=== PATIENT | female | born 1955 | race Caucasian/White ===

== ENCOUNTER → 2016-05-10 | Outpatient (CLI) | payer OTHER ==
--- NOTE | 2016-05-10 09:51 | DIAGNOSTIC IMAGING REPORT ---
(BARIUM SWALLOW) ESOPHAGUS CLINICAL HISTORY: REFLUXdysphagia COMPARISON STUDY: None FLUOROSCOPY TIME: 0.7 minutes. FINDINGS: Patient initiated swallowing function well. There is moderate esophageal spasm and dysmotility. There is a small hiatal hernia. Mild gastroesophageal reflux changes IMPRESSION: Small hiatal hernia. Moderate reflux. Generalized esophageal irritability and/or spasm Electronically signed by: Donovan Mo M.D. 05/10/2016 9:49 AM Dictated Date/Time: 05/10/2016 9:48 AM
== END | disposition home or self-care (01) ==
LOC: C.RAD 09:21
PROVIDERS: ATTEND Internal Medicine
DX: K21.9 Gastro-esophageal reflux disease without esophagitis (principal)

== ENCOUNTER → 2017-02-28 | Outpatient (CLI) | payer OTHER ==
--- NOTE | 2017-02-28 12:56 | MAMMOGRAPHY REPORT ---
BILATERAL DIGITAL SCREENING MAMMOGRAM WITH CAD: 02/28/2017 CLINICAL HISTORY: Routine screening. Patient has no complaints. TECHNIQUE: Current study was also evaluated with a Computer Aided Detection (CAD) system. Bilateral CC and MLO views were obtained. COMPARISON: Comparison is made to exams dated: 02/23/2016 mammogram, 02/17/2015 mammogram, 02/04/2014 mammogram, 01/29/2013 mammogram, and 02/01/2011 mammogram - [facility]. BREAST COMPOSITION: There are scattered areas of fibroglandular density in both breasts. FINDINGS: No suspicious masses, calcifications, or areas of architectural distortion are noted in ei ther breast. There has been no significant interval change compared to prior exams. Scattered bilater al benign-appearing calcifications are not significantly changed. IMPRESSION: ACR BI-RADS CATEGORY 2: BENIGN There is no mammographic evidence of malignancy. A 1 year screening mammogram is recommended. The pa tient will receive written notification of the results. Approximately 10% of breast cancers are not detected with mammography. A negative mammographic report should not delay biopsy if a clinically suggestive mass is present. Joanie Montano M.D. /:02/28/2017 07:40:29 Manager Qa: Gisell RYAN)([place]), [facility] letter sent: Normal 1/2 BI-RADS Code: ACR BI-RADS Category 2: Benign
== END | disposition home or self-care (01) ==
LOC: C.MAMM 07:14
PROVIDERS: ATTEND Internal Medicine
DX: Z12.31 Encounter for screening mammogram for malignant neoplasm of breast (principal)

== ENCOUNTER 2023-07-23 10:24 | Inpatient (IN) ==
--- NOTE | 2023-07-23 10:56 | Emergency Department Note ---
Impression & Plan Fracture of ankle, trimalleolar, right, open ADMIT ED Provider Note HPI: History obtained from patient. The patient is a 67-year-old female who presents the emergency department with a right ankle deformity. Patient states that she had a fall down several stairs outside her house when she slipped on one of her shoes. On arrival here to the ED the patient has some swelling of the right ankle, motor and sensory function is intact distally in the digits of the right foot. There are several small puncture wounds with minimal active bleeding to the medial aspect of the right ankle without any obvious exposed bone. Patient denies any other focal complaint of pain, patient is otherwise hemodynamically stable on arrival. ROS: - Per HPI Differential Diagnosis: Ankle fracture, ankle dislocation, open fracture, amongst other potential pathologies. *Outpatient medications and allergy history reviewed. PE: General: Alert HEENT: Normocephalic, trachea midline Eyes: Extraocular eye movement is intact, no scleral erythema Pulmonary: Clear to auscultation bilaterally, no wheezing Cardio: Regular rate and rhythm GI: Abdomen is soft to palpation : No suprapubic tenderness MSK: Malformation noted in the area of the right ankle with puncture wounds noted medially with minimal active bleeding, no evidence of exposed bone, there is a palpable dorsalis pedis pulse in the right lower extremity, motor and sensory function is otherwise intact distally in the right foot, there is no cyanosis Skin: No evidence of rash Neuro: Alert, no focal deficits Psychiatric: Cooperative INDEPENDENT INTERPRETATIONS: monitor technician: (As interpreted by myself): - An order was placed for continuous cardiac monitoring - Patient was noted to be in sinus rhythm with a rate of 65 EKG: (As interpreted by myself): Rate: 71 Rhythm: Normal sinus rhythm Intervals: Within normal limits ST changes: No ST elevation Time: 1114 Interventions provided in ED: -IV morphine, IV Zofran, IV Ancef, Tdap Medical Decision Making: IV was established and lab work obtained, patient was placed on clinical research monitor. Lab work shows no leukocytosis, hemoglobin is normal, platelet count is normal, CMP does not show any critical findings. X-ray imaging of the right ankle shows evidence of a trimalleolar fracture with some subcutaneous air consistent with open fracture. Patient does have an abrasion and puncture wound to the medial aspect of the right ankle. There is minimal active bleeding from this area. Patient was given IV Ancef as well as Tdap. I discussed the patient's presentation with on-call orthopedics, Dr. Waldrop, who did review x-ray imaging. Patient was evaluated at the bedside by the midlevel provider for the orthopedic service, Hans Longoria PA-C, patient was placed in a splint by the orthopedic service and transferred to the operating room for further management by the orthopedic service. Patient was in agreement to this plan and she was transferred in stable condition for further management. Consultants/Discussions held with other healthcare providers: -Orthopedic Surgery, Dr. Waldrop Disposition discussion held by myself with: -Patient Diagnosis: 1. Trimalleolar fracture, acute, right lower extremity, open fracture Disposition: Admission to orthopedics Donovan Palacios DO Emergency Medicine Past Med/Surg History Medical History (Updated 07/23/23 @ 15:33 by Donovan Palacios DO) Ankle fracture, left Type 2 diabetes mellitus Elevated cholesterol Hypertension Surgical History (Updated 07/23/23 @ 13:00 by Hans Longoria PA-C) Status post ORIF of fracture of ankle Family History (Updated 07/23/23 @ 13:00 by Hans Longoria PA-C) Other Stroke Social History (Updated 07/23/23 @ 13:01 by Hans Longoria PA-C) Smoking Status: Never smoker Hx Substance Use: No Preferred Language: Divehi Hearing Ability: Normal current occupational status: retired Feels Safe at Home: Yes Allergies Allergies Allergy/AdvReac Type Severity Reaction Status Date / Time house dust mite Allergy Sneezing Verified 07/23/23 14:11 pollen extracts Allergy Sneezing Verified 07/23/23 14:11 Home Meds Home Medications Medication Instructions Recorded Confirmed dulaglutide 0.75 mg/0.5 mL 0 mg subcut UD 07/23/23 07/23/23 [facility] Results & Data (ED) Vital Signs Vital Signs - 24 hr 07/23/23 10:18 07/23/23 10:33 07/23/23 10:39 Temperature 36.5 C Temperature Source Oral Pulse Rate 71 68 Pulse Rate [Apical] Pulse Rhythm [Apical] Pulse Strength [Apical] Respiratory Rate 18 18 Respiratory Effort / Characteristics Respiratory Depth Respiratory Pattern Blood Pressure 170/108 H Blood Pressure [Left Arm] Blood Pressure Mean 128 Blood Pressure Mean [Left Arm] Blood Pressure Position [Left Arm] Pulse Oximetry 95 Oxygen Delivery Method Room Air Sepsis Recent Fever Within 48 Hours No Sepsis New/Unexplained Change in Mental Status N/A Sepsis Action Taken by Nursing No Action Required 07/23/23 13:39 07/23/23 14:06 Temperature 36.6 C Temperature Source Oral Pulse Rate Pulse Rate [Apical] 67 63 Pulse Rhythm [Apical] Regular Pulse Strength [Apical] Normal Respiratory Rate 18 18 Respiratory Effort / Characteristics Non-Labored Spontaneous Respiratory Depth Normal Respiratory Pattern Regular Blood Pressure Blood Pressure [Left Arm] 144/86 H 156/107 H Blood Pressure Mean Blood Pressure Mean [Left Arm] 105 123 Blood Pressure Position [Left Arm] Semi-fowlers Pulse Oximetry 96 94 Oxygen Delivery Method Room Air Sepsis Recent Fever Within 48 Hours Sepsis New/Unexplained Change in Mental Status Sepsis Action Taken by Nursing Laboratory Data 07/23/23 11:28 07/23/23 11:28 Lab Results 07/23/23 07/23/23 Range/Units 11:28 14:08 WBC 8.51 (4.8-10.8) K/ul RBC 4.37 (4.20-5.40) M/uL Hgb 13.5 (12.0-16.0) g/dl Hct 40.9 (37.0-47.0) % MCV 93.6 (80.0-100.0) fL MCH 30.9 (25.0-34.0) pg MCHC 33.0 (32.0-36.0) g/dL RDW Std Deviation 47.2 H (36.4-46.3) fL RDW Coeff of Nelly 13.8 (11.5-14.5) % Plt Count 223 (130-400) K/uL MPV 10.9 (9.4-12.4) fL Immature Gran % (Auto) 0.2 % Neut % (Auto) 74.3 % Lymph % (Auto) 18.8 % [place] % (Auto) 5.3 % Eos % (Auto) 0.8 % Baso % (Auto) 0.6 % Neut # (Auto) 6.32 (1.40-6.50) K/uL Lymph # (Auto) 1.60 (1.20-3.40) K/uL [place] # (Auto) 0.45 (0.11-0.59) K/uL Eos # (Auto) 0.07 (0.00-0.50) K/uL Baso # (Auto) 0.05 (0.00-0.20) K/uL Immature Gran # (Auto) 0.02 (0.01-0.20) K/uL PT 10.5 (9.0-12.0) Seconds INR 1.0 (0.9-1.1) Sodium 140 (136-145) mmol/L Potassium 4.2 (3.5-5.1) mmol/L Chloride 106 (98-107) mmol/L Carbon Dioxide 25 (21-32) mmol/L Anion Gap 9 (3-11) BUN 18 (6-23) mg/dl Creatinine 0.78 (0.6-1.2) mg/dl Est Cr Clr Drug Dosing 84.7 ml/min Est GFR ( Amer) 90.5 ml/min Est GFR (Non-Af Amer) 78.1 ml/min BUN/Creatinine Ratio 23.1 H (10-20) Glucose 118 H (70-99(Fasting)) mg/dl POC Glucose 87 (70-99) mg/dl Calcium 9.1 (8.6-10.3) mg/dl Total Bilirubin 0.3 (0.2-1.0) mg/dl AST 16 (13-39) U/L ALT 17 (7-52) U/L Alkaline Phosphatase 63 (34-104) U/L Total Protein 6.6 (6.0-8.3) gm/dl Albumin 4.1 (3.4-5.0) gm/dl Globulin 2.5 (2.5-4.0) gm/dl Albumin/Globulin Ratio 1.6 (0.9-2) Blood Type O Positive Antibody Screen NEGATIVE Administered Medications Discontinued Medications Diphtheria/Pertussis/Tetanus Vacc (Diphther/Tetan/Pertus Vaccine (Tdap, Adol/Adult) 0.5ml) 0.5 ml IM .ONCE ONE Stop: 07/23/23 10:51 Last Admin: 07/23/23 12:02 Dose: 0.5 ml Documented By: ISHMAEL Sodium Chloride (Nss) 500 mls @ 999 mls/hr IV .Q31M STA Stop: 07/23/23 11:19 Last Infusion: 07/23/23 12:26 Dose: Infused Documented By: Admin: 07/23/23 11:00 Dose: 999 mls/hr Documented By: ISHMAEL Cefazolin Sodium (Ancef 2000mg) 2,000 mg in 15 mls @ 3.75 mls/min IV PREOP ONE; Protocol Stop: 07/23/23 10:52 Last Admin: 07/23/23 11:01 Dose: 3.75 mls/min Documented By: ISHMAEL Metoprolol Tartrate (Metoprolol Tartrate 1 Mg/Ml Vial) Confirm Administered Dose 5 mg IV .STK-MED ONE Stop: 07/23/23 13:30 Last Admin: 07/23/23 13:35 Dose: Not Given Documented By: ISHMAEL Morphine Sulfate (Morphine Sulfate 4 Mg/Ml 1 Ml Carp\Vial) 4 mg IV NOW STA Stop: 07/23/23 10:52 Last Admin: 07/23/23 11:00 Dose: 4 mg Documented By: ISHMAEL Ondansetron HCl (Ondansetron Inj 2 Mg/Ml 2 Ml Vial) 4 mg IV NOW STA Stop: 07/23/23 10:52 Last Admin: 07/23/23 11:00 Dose: 4 mg Documented By: ISHMAEL Imaging Data Radiologist's Impression: Ankle X-Ray 07/23/23 10:51 XR ankle RT min 3V routine CLINICAL HISTORY: fall, R ankle deformity COMPARISON STUDY: None. FINDINGS: Soft tissue swelling within the right ankle. There is a displaced fractures involving the medial and lateral malleoli. Possible displaced fracture the posterior malleolus. There is associated 12 mm of lateral dislocation of the talus in relation to the distal tibia. There is soft tissue gas within and surrounding the ankle joint. This suggests the possibility of an open fracture. IMPRESSION: 1. Right ankle trimalleolar fracture/dislocation as described above. 2. Soft tissue gas both within and surrounding the right ankle joint raising the possibility of an open fracture. ACT 112: Negative or not required by law. Electronically signed by: Forest Cook M.D. 07/23/2023 11:13 AM Discharge Plan Visit Data Chief Complaint: Ankle Pain Stated Complaint: FALL, R ANKLE PAIN ED Provider: Donovan Palacios Discharge Problem: Fracture of ankle, trimalleolar, right, open Patient Disposition: Admitted As Inpatient Discharge Instructions Interventions: ED Discharge Assessment Last Done: 07/23/23 13:49
[2023-07-23] MEDS: MoRPHine SULFATE 4 MG/ML 1 ML CARP\\VIAL IV STA (11:00)
[2023-07-23] MEDS: SODIUM CHLORIDE 0.9% 500 ML IV STA (11:00)
[2023-07-23] MEDS: ONDANSETRON INJ 2 MG/ML 2 ML VIAL IV STA (11:00)
[2023-07-23] MEDS: ceFAZolin 2000MG 2,000 MG/15 ML SYR IV ONE ×2 (11:01→15:15)
--- NOTE | 2023-07-23 11:15 | XRay Report ---
XR ankle RT min 3V routine CLINICAL HISTORY: fall, R ankle deformity COMPARISON STUDY: None. FINDINGS: Soft tissue swelling within the right ankle. There is a displaced fractures involving the m edial and lateral malleoli. Possible displaced fracture the posterior malleolus. There is associated 12 mm of lateral dislocation of the talus in relation to the distal tibia. There is soft tissue gas w ithin and surrounding the ankle joint. This suggests the possibility of an open fracture. IMPRESSION: 1. Right ankle trimalleolar fracture/dislocation as described above. 2. Soft tissue gas both within and surrounding the right ankle joint raising the possibility of an op en fracture. ACT 112: Negative or not required by law. Electronically signed by: Forest Cook M.D. 07/23/2023 11:13 AM
[2023-07-23 11:49] LABS: Basophils # (auto) 0.05 K/uL (0.00-0.20); Basophils % (auto) 0.6 %; Eosinophils # (auto) 0.07 K/uL (0.00-0.50); Eosinophils % (auto) 0.8 %; Hematocrit (blood only) 40.9 % (37.0-47.0); Hemoglobin 13.5 g/dl (12.0-16.0); Immature Granulocytes # (auto) 0.02 K/uL (0.01-0.20); Immature Granulocytes % (auto) 0.2 %; Lymphocytes % (auto) 18.8 %; Mean Corpuscular Hemoglobin 30.9 pg (25.0-34.0); Mean Corpuscular Volume 93.6 fL (80.0-100.0); Mean Platelet Volume 10.9 fL (9.4-12.4); Monocytes # (auto) 0.45 K/uL (0.11-0.59); Monocytes % (auto) 5.3 %; Neutrophils # (auto) 6.32 K/uL (1.40-6.50); Neutrophils % (auto) 74.3 %; Platelet Count 223 K/uL (130-400); RDW Coefficient of Variation 13.8 % (11.5-14.5); RDW Standard Deviation 47.2 fL (36.4-46.3); Red Blood Count 4.37 M/uL (4.20-5.40); White Blood Count 8.51 K/ul (4.8-10.8)
[2023-07-23 11:55] LABS: Prothrombin Time 10.5 Seconds (9.0-12.0)
[2023-07-23] MEDS: DIPHTHER/TETAN/PERTUS Vaccine (Tdap, Adol/Adult) 0.5mL IM ONE (12:02)
[2023-07-23 12:05] LABS: Albumin Globulin Ratio 1.6 (0.9-2); Albumin Level 4.1 gm/dl (3.4-5.0); BUN Creatinine Ratio 23.1 (10-20); Bilirubin,Total 0.3 mg/dl (0.2-1.0); Calcium 9.1 mg/dl (8.6-10.3); Creatinine Clr Calc Pharmacy 84.7 ml/min; Est GFR (African American) 90.5 ml/min; Est GFR (Non-African American) 78.1 ml/min; Globulin 2.5 gm/dl (2.5-4.0); Potassium 4.2 mmol/L (3.5-5.1); Total Protein 6.6 gm/dl (6.0-8.3)
[2023-07-23] MEDS ORDERED: ROCURONIUM BROMIDE 10 MG/ML 5 ML VIAL IV ONE (13:04)
[2023-07-23] MEDS ORDERED: DEXAMETHASONE SOD INJ 4 MG/ML VIAL ONE (13:04)
[2023-07-23] MEDS ORDERED: ONDANSETRON INJ 2 MG/ML 2 ML VIAL ONE (13:04)
[2023-07-23] MEDS ORDERED: MIDAZOLAM HCL 1 MG/ML 2ML VIAL ONE (13:04)
[2023-07-23] MEDS ORDERED: LIDOCAINE 2% 2 ML VIAL/AMP(20MG/ML) INFIL ONE ×2 (13:04→14:44)
[2023-07-23] MEDS ORDERED: fentaNYL citrate PF 100 MCG/2 ML VIAL ONE ×2 (13:04→16:28)
[2023-07-23] MEDS ORDERED: PROPOFOL IV EMULSION 10 MG/ML 20 ML VIAL IV ONE (13:04)
[2023-07-23] MEDS ORDERED: GLYCOPYRROLATE 0.2 MG/ML VIAL ONE (13:04)
[2023-07-23] MEDS ORDERED: SUGAMMADEX SODIUM 200 MG/2 ML VIAL IV ONE (13:05)
--- NOTE | 2023-07-23 13:12 | Orthopedic Consultation ---
Date of Consultation July 23, 2023 Assessment & Plan (1) Fracture of ankle, trimalleolar, right, open: The patient was evaluated today. IV has already been established. She has been updated on her tetanus and antibiotics have been given. She will be splinted and taken to the operating room for irrigation and debridement with open reduction and internal fixation of the ankle fracture. She is aware. The patient last ate at 7 AM. It has been 6 hours, but we will proceed with surgery given the emergent nature of her injury. Informed written consent has been obtained. She is aware of her postoperative recovery given her previous ORIF of the left ankle. PDMP was checked and there are no concerning findings. History of Present Illness Reason for Consultation: Right ankle open fracture Attending Physician: Palma History of Present Illness This 67-year-old female is seen today in room B2 in the ED, for evaluation of a right open ankle fracture. The patient states she was walking down her outdoor steps this morning and had heels on. She was going to line dancing. She caught her heel and fell, twisting her ankle. There was immediate onset of pain. She noted bleeding. She was brought to the ED and found to have an open ankle fracture. She denies any other areas of discomfort other than her right diaz. She states there is an abrasion present. She has a history of previous left ankle fracture with ORIF in 2018 performed by [facility] orthopedics. She denies any numbness or tingling. There was no loss of conscious. She denies any headache or neck pain. Last food intake was around 7 AM. No other complaints. Patient History Medical History (Updated 07/23/23 @ 13:08 by Hans Longoria PA-C) Ankle fracture, left Type 2 diabetes mellitus Elevated cholesterol Hypertension Surgical History (Updated 07/23/23 @ 13:00 by Hans Longoria PA-C) Status post ORIF of fracture of ankle Family History (Updated 07/23/23 @ 13:00 by Hans Longoria PA-C) Other Stroke Social History (Updated 07/23/23 @ 13:01 by Hans Longoria PA-C) Smoking Status: Never smoker Hx Substance Use: No Preferred Language: Lao Hearing Ability: Normal current occupational status: retired Feels Safe at Home: Yes Review of Systems Review of Systems: All systems reviewed & are unremarkable except as noted in HPI & below A total of 10 systems were reviewed. Physical Exam Physical Exam: General: Well-developed, well-nourished, middle-aged female, in no acute distress. Obvious discomfort. Laying in bed. Alert and oriented. Skin: Warm and dry with good turgor. No rashes. She has an abrasion present over the right diaz with mild ecchymosis and edema developing. She has open puncture wounds present on the medial aspect of her right ankle. There is active bleeding. No foreign material is noted. HEENT: Normocephalic atraumatic. Eyes PERRLA, EOMI. No conjunctiva or scleral injection. Nares patent bilaterally without turbinate enlargement. No significant drainage. No epistaxis. Oropharynx without erythema or exudate. Uvula midline, oral mucosa moist. No lesions present. Dental caps and implants are present. Heart: Heart RRR. No MGR. Peripheral pulses are 2+. Lungs: Lungs are clear to auscultation. No crackles rhonchi or wheezing. Good air movement. The patient is able to take a deep breath. Abdomen: Abdomen was inspected, auscultated, and palpated. Obese. Bowel sounds present x 4. Soft, nontender to palpation. No hepato-splenomegaly. No masses noted. No rebound. Musculoskeletal: The patient has no discomfort with palpation of her left leg. There is supple motion of the left hip, knee, and ankle. Motion of the right leg causes pain at her right ankle. She has no pain with palpation over her right hip, thigh, knee, or proximal diaz. Motor function of the toes is intact and unremarkable. Motor function of the ankle was not assessed. Neurologic: Gross sensation is intact across both lower extremities by soft touch. Peripheral pulses are 2+. Results & Data Vital Signs (Past 12 Hours) Vital Signs Temp Pulse Resp BP Pulse Ox O2 Del Method 07/23/23 10:39 68 07/23/23 10:33 18 07/23/23 10:18 36.5 C 71 18 170/108 H 95 Room Air Laboratory Results CBC obtained today shows a white count of 8.51. H&H of 13.5 and 40.9. Platelets 223,000. Sodium 140, potassium 4.2, chloride 106, anion gap of 9. BUN of 18 with creatinine 0.78. Glucose today is 118. LFTs are unremarkable. Diagnostic Findings Radiographic imaging obtained today of the right ankle has been read by radiology. She has a possible trimalleolar fracture with definitive fractures of the medial and lateral malleoli as well as lateral displacement. Questionable injury to the posterior tibia. Gas is noted consistent with an open fracture.
--- NOTE | 2023-07-23 13:21 | Anesthesiology Consultation ---
Date of Service July 23, 2023 History Surgery Operation Date: 07/23/23 13:10 Proposed Procedures p Right Incision and Drainage - Maxi Waldrop MD s Open Reduction Internal Fixation Ankle - Maxi Waldrop MD Height/Weight Height: 5 ft 6 in Weight: 105.3 kg Past Medical History Medical History (Updated 07/23/23 @ 13:08 by Hans Longoria PA-C) Ankle fracture, left Type 2 diabetes mellitus Elevated cholesterol Hypertension Past Family History Family History (Updated 07/23/23 @ 13:00 by Hans Longoria PA-C) Other Stroke Past Surgical History Surgical History (Updated 07/23/23 @ 13:00 by Hans Longoria PA-C) Status post ORIF of fracture of ankle Social History Smoking Status: Never smoker Hx Substance Use: No Physical Exam Vital Signs Last Vital Signs Temp 36.5 C 07/23/23 10:18 Pulse 68 07/23/23 10:39 Resp 18 07/23/23 10:33 BP 170/108 H 07/23/23 10:18 Pulse Ox 95 07/23/23 10:18 O2 Del Method Room Air 07/23/23 10:18 Testing Laboratory Results 07/23/23 11:28 07/23/23 11:28 PT 10.5 Seconds (9.0-12.0) 07/23/23 11:28 INR 1.0 (0.9-1.1) 07/23/23 11:28 Blood Type O Positive 07/23/23 11:28 Antibody Screen NEGATIVE 07/23/23 11:28
[2023-07-23] MEDS: METOPROLOL TARTRATE 1 MG/ML VIAL IV ONE (13:35)
[2023-07-23] MEDS ORDERED: ROPIVACAINE 0.5% 5 MG/ML 30 ML VIAL ONE (13:46)
[2023-07-23] MEDS ORDERED: ceFAZolin 330 MG/ML 1 GM VIAL ONE (15:14)
[2023-07-23] MEDS: LIDOCAINE 1% LOCAL 20 ML VIAL ONE (15:44)
[2023-07-23] MEDS: BUPIVACAINE/EPINEPHRINE 0.5% MPF 1:200,000 30 ML VIAL ONE (15:44)
[2023-07-23] MEDS: BUPIVACAINE 0.5 % 5 MG/1 ML MPF 30ML VIAL ONE (15:44)
[2023-07-23] MEDS: LIDOCAINE 1%/EPINEPHRINE 1:100,000 20 ML VIAL ONE ×2 (15:44)
[2023-07-23] MEDS ORDERED: hydrALAZINE HCL 20 MG/ML VIAL ONE (16:53)
--- NOTE | 2023-07-23 17:43 | Fluoroscopy Report ---
FL ankle RT min 3V RTN CLINICAL HISTORY: RT ANKLE ORIF COMPARISON STUDY: None. FLUOROSCOPY TIME: 48 seconds FLUOROSCOPY IMAGES: 4 Ka,r: 0.6 mGy FINDINGS: Internal fixation of the right ankle trimalleolar fracture/dislocation. The hardware appear s intact. There is near-anatomic alignment. IMPRESSION: Fluoroscopic assistance as above. ACT 112: Negative or not required by law. Electronically signed by: Forest Cook M.D. 07/23/2023 5:42 PM
--- NOTE | 2023-07-23 18:05 | Operative Report ---
Post Operative Report Pre & Post Diagnosis Operation Date: 07/23/23 13:10 Pre-Op Diagnosis: Grade 1 open right ankle bimalleolar fracture Post-Op Diagnosis: Grade 1 open right ankle bimalleolar fracture with unstable syndesmosis. I identified the patient and participated in the time-out.: Yes Procedure Operation Date: 07/23/23 13:10 Actual Procedures Irrigation and debridement of the right ankle bimalleolar fracture. Open reduction internal fixation of the medial and lateral malleolus. Open reduction internal fixation of the syndesmosis. Surgeon Maxi Waldrop MD Bowling Ball Patcher Hans Longoria physicians assistant inventory manager no resident or fellow available Estimated Blood Loss 50 Findings Consistent with Post-Op Diagnosis Specimens None Anesthesia Type General Regional Complications none Disposition Accompanied Patient To Recovery: No Disposition: Recovery Room Indications Prisca is 67. She fell and sustained a open right ankle fracture. I recommended irrigation and debridement ORIF she agreed to proceed. Her tetanus is up-to-date in which she received IV antibiotics in the emergency room. Description of Procedure Informed consent obtained. Patient identified. She identified the operative site as the right ankle which I marked with my initials. A preoperative surgical timeout was performed. A preop dose of IV antibiotics was given. She was taken to the operating room positioned supine on the operating room table with a tourniquet on the right thigh and a bump under the right hip. The leg was scrubbed with Betadine and then prepped and draped in usual sterile fashion with Betadine. There is an abrasion over the tibial tubercle area. There was an abrasion medial ankle. There was an area anteriorly along the medial ankle which was almost open. It did not clearly bleed and did not directly penetrate into the deeper tissues when later probed. There was however a break in this skin that went through the epidermis and into the dermis. This was less than 5 mm in size. It was transversely oriented at the level of the fracture site. There is another area posterior to this which measured 5 mm in length anterior to posterior which was open and bleeding and communicated directly to the fracture site at that level. The limb was exsanguinated with the Esmarch tourniquet inflated 300 mmHg. The ankle was grossly unstable and care was taken to prevent ankle instability episode. Mechanical devices for intraoperative DVT prophylaxis. Postoperatively mobility mechanical devices and Eliquis starting the morning after surgery. I made a longitudinal incision about 6 to 8 cm in length medially along the shaft of the tibia over the medial malleolus and between the 2 after mentioned wounds. Upon incising the skin the fracture was readily identified as all of the subcutaneous tissues had been violated. The fracture was identified and cleaned of soft tissue. This was a small distal fragment without comminution. The posterior tib tendon was identified and was found to be intact. The ankle joint was easily opened by inserting a retractor through the anterior soft tissues there was a small scuff of the central talus which I debrided with a rongeur. A couple millimeters flake of cartilage. The remainder of the ankle joint itself was unremarkable. I applied 3+ liters of sterile saline for pulsatile lavage and bulb syringe irrigation to the bony surfaces and joint. The fracture was then anatomically reduced and confirmed visually and fluoroscopically and then 2 guidepins for the 4.0 cannulated screws were i nserted and adjusted x 2 to the appropriate position. I ensured that the posterior tib tendon was not near the screw. The pins were overreamed and screws of 50 mm in length with long threads., 4.0 cannulated screws were inserted with good purchase. Washers were applied. Dental Service Technician images were obtained demonstrating anatomic alignment of the fracture and good positioning of the hardware. I then went ahead and turned my attention laterally where I made a longitudinal incision of about 10 cm in length. The soft tissues were largely intact except for directly over the baudilio fracture site. I used blunt dissection down to subcutaneous tissues to the level of the periosteum which was then divided in line with the shaft of the fibula and subperiosteal exposure of the fracture site was performed. A small transversing nerve branch which may have been a branch of the superficial peroneal nerve was identified preserved and protected throughout the procedure. The fracture site was opened and cleaned of soft tissue and then irrigated with 3 L pulsatile lavage. I then applied a alligator clamp across the fracture site and fixated this with a bicortical 3.5 mm lag screw. I then applied a 7 hole one third tubular locking plate and aligned fluoroscopically. I inserted a 3.5 mm bicortical screw proximally followed by 2 additional screws distally and 2 locking screws proximally. The distal screws were unicortical. The proximal screws were bicortical. The syndesmosis was stressed and found to be grossly unstable medial to lateral as well as posteriorly. Anterior had a firm endpoint and that that is where it tended to be position. I put the ankle and maximum dorsiflexion and applied a large bone clamp across the syndesmosis. Then fluoroscopically with guidance I inserted a 4 cortical 3.5 mm positioning screw through the plate and into the tibia. This restored stability to the syndesmosis in the proper position. Dental Service Technician fluoroscopic images AP lateral and oblique were obtained demonstrating good positioning of the fracture and hardware. The tourniquet was let down and meticulous hemostasis was performed. Both sides were reirrigated with another liter of sterile saline. The puncture wounds medially were closed with simple 4-0 nylon interrupted stitches. Loosely approximated. There is no deeper soft tissue to reapproximate medially. The saphenous neurovascular bundle was identified in the anterior skin flap and protected. The skin was closed with 3-0 Vicryl followed by cherise. On the lateral side I was able to reapproximate the deeper soft tissues over the distal two thirds of the plate with 2-0 Vicryl. The skin was then closed with 3-0 Vicryl and cherise. Deeper proximally the perineal muscles covered over the plate. The leg was cleaned with wet and dry sponges Xeroform antibiotic ointment were applied gauze pads ABDs soft wrap and a posterior splint with the ankle in neutral. Patient awakened from anesthesia without difficulty and taken to recovery in stable condition. There were no specimens or complications counts were correct and blood loss is estimated to be 50 cc. At the conclusion the operation I left a message for her at the number provided. She will be admitted to the hospital for IV antibiotics for open fracture. 48 hours of IV antibiotics. She will be nonweightbearing on the involved limb. Eliquis for DVT prophylaxis starting in the morning. Synthes hardware was used utilized. 4.0 cannulated screws medially and a 3.5 mm locking plate laterally. I attest to the content of the Intraoperative Record and any orders documented therein. Any exceptions are noted below.
--- NOTE | 2023-07-23 18:31 | Operative Report ---
Post Operative Report Pre & Post Diagnosis Operation Date: 07/23/23 13:10 Pre-Op Diagnosis: Right ankle fracture Post-Op Diagnosis: Right ankle fracture I identified the patient and participated in the time-out.: Yes Procedure Operation Date: 07/23/23 13:10 Actual Procedures p Right Incision and Drainage(Right) - Maxi Waldrop MD s Open Reduction Internal Fixation Ankle(Right) - Maxi Waldrop MD Surgeon P Palma MENDOZA Harvesting Manager Hans Longoria physicians porcelain buildup assistant no resident or fellow available Estimated Blood Loss 50 Findings Consistent with Post-Op Diagnosis See operative report Specimens None Drains None Complications none Disposition Accompanied Patient To Recovery: Yes Indications This 67-year-old female presented through the ED with an open right ankle fracture. She elected to proceed with surgical intervention after being educated about potential risks and outcomes. Preoperative imaging was obtained. Description of Procedure The patient was administered a regional block and then taken to the operating room where she was given general anesthesia. She was prepped and draped in the usual sterile fashion. Please see Dr. Waldrop's operative report for specifics of the procedure. I was present for the entire case from initial patient positioning through final wound closure. Assistance was provided in ti ssue retraction, hemostasis, fracture reduction, hardware placement, final wound closure, and postsurgical splinting. The patient was taken to the recovery room in satisfactory condition. I attest to the content of the Intraoperative Record and any orders documented therein. Any exceptions are noted below.
[2023-07-23] MEDS ORDERED: ONDANSETRON INJ 2 MG/ML 2 ML VIAL IV PRN (18:32)
[2023-07-23] MEDS ORDERED: oxyCODONE HCL IR 5 MG TAB (IMMEDIATE RELEASE) PO PRN (18:32)
[2023-07-23] MEDS ORDERED: MAGNESIUM HYDROXIDE SUSP 30 ML UDC PO PRN (18:32)
[2023-07-23] MEDS ORDERED: METOCLOPRAMIDE HCL INJ 5 MG/ML 2 ML VIAL IV PRN (18:32)
[2023-07-23] MEDS ORDERED: bisacodyL 10 MG SUPP PR PRN (18:32)
[2023-07-23] MEDS ORDERED: PHARMACY GLYCEMIC MGMT CONSULT PRN (18:32)
[2023-07-23] MEDS ORDERED: ALUMINUM/MAGNESIUM SUSP 30 ML UDC PO PRN (18:32)
[2023-07-23] MEDS ORDERED: HYDROmorphone INJ 0.5 MG/0.5 ML SYR IV PRN (18:32)
[2023-07-23] MEDS ORDERED: NALOXONE HCL 0.4 MG/1 ML VIAL/CARP IV PRN (18:32)
--- NOTE | 2023-07-23 18:49 | Anesthesiology Progress Note ---
Date of Service July 23, 2023 Anesthesia Post Procedure Vital Signs Vital Signs: Temp Pulse Pulse Resp BP BP Pulse Ox 07/23/23 18:40 82 23 142/79 H 93 07/23/23 18:30 89 24 139/87 95 07/23/23 18:22 37.0 C 85 21 118/76 94 07/23/23 14:06 36.6 C 63 18 156/107 H 94 07/23/23 13:39 67 18 144/86 H 96 07/23/23 10:39 68 07/23/23 10:33 18 07/23/23 10:18 36.5 C 71 18 170/108 H 95 O2 Del Method O2 Flow Rate 07/23/23 18:40 Oxymask 4 07/23/23 18:30 Oxymask 8 07/23/23 18:22 Oxymask 8 07/23/23 14:06 Room Air 07/23/23 13:39 07/23/23 10:39 07/23/23 10:33 07/23/23 10:18 Room Air Pain Intensity Right Ankle: Pain Intensity: 3 Transfer of Care Handoff Completed per policy Notes Mental Status: alert / awake / arousable and participated in evaluation Patient Amnestic to Procedure: Yes Nausea / Vomiting: adequately controlled Pain: adequately controlled Airway Patency, RR, SpO2: stable & adequate BP & HR: stable & adequate Hydration State: stable & adequate Anesthetic Complications: no major complications apparent and Pt Satisfied with anesthetic care
[2023-07-23] MEDS: SODIUM CHLORIDE 0.9% 1,000 ML IV SCH ×2 (19:57→20:09)
[2023-07-23] MEDS ORDERED: LANTUS PER UNIT CHARGE SC ONE (20:00)
[2023-07-23] MEDS ORDERED: GLUCAGON FOR INJ 1 MG VIAL IM PRN (20:00)
[2023-07-23] MEDS ORDERED: DEXTROSE 50% 50 ML SYRINGE IV PRN (20:00)
[2023-07-23] MEDS ORDERED: GLUCOSE 40% GEL 15 GM TUBE PO PRN (20:00)
[2023-07-23] MEDS ORDERED: CARBOHYDRATES FOR HYPOGLYCEMIA PO PRN (20:00)
[2023-07-23] MEDS ORDERED: GLUCOSE 10 TAB/TUBE PO PRN (20:00)
--- OUTSIDE RECORDS SUMMARY | 2023-07-23 20:09 | External Medical Summary | Summary of Care ---
Author Name Unknown Organization [facility] Address [address] [place] [address] Phone [phone] Care Team Providers Care Stonemason Helper Name Role Phone Gisela Hedrick MD Primary Care Provider [phone] Reason for Visit * Reason Comments eRx-Medication Refill Encounter Details Date Type Department Care Team (Late st Contact Info) Description 06/30/2023 Refill General Internal Medicine [facility] [address] [place] [address] Gisela Hedrick MD [address] [place] [address] Type 2 diabetes mellitus with hemoglobin A1c goal of less than 7.0% ([facility]); Severe obesity (BMI 35.0-39.9) with comorbidity ([facility]) Allergies Active Allergy Reactions Criticality Noted Date Comments Pollen Low 06/21/2016 Rhinitis Mites 06/21/2016 documented as of this encounter (statuses as of 07/01/2023) Medications Medication Sig Dispensed Refills Start Date End Date Status MULTI-DAY VITAMINS PO TABS once a day 0 12/20/2005 Active aspirin enteric coated 81 MG TBECIndications:Type 2 diabetes mellitus with hemoglobin A1c goal of less than 7.0% (HCC) Take 1 Tab by mouth daily. 100 Tab 3 01/03/2016 Active Glucose Blood (WoogaTOUCH ULTRA BLUE) STRPIndications:Type 2 diabetes mellitus with hemoglobin A1c goal of less than 7.0% (HCC) Use up to 3 times a day as directed--E11.9 100 Strip 11 01/03/2016 Active Blood Glucose Monitoring Suppl (WoogaTOUCH ULTRA SYSTEM) W/DEVICE KITIndications:Type 2 diabetes mellitus with hemoglobin A1c goal of less than 7.0% (HCC) Use up to 3 times a day as directed--E11.9 1 Kit 0 01/03/2016 Active Netsonda ResearchUCH ULTRASOFT LANCETS MISCIndications:Type 2 diabetes mellitus with hemoglobin A1c goal of less than 7.0% (HCC) Use up to 3 times a day as directed--E11.9 1 Box Dosing Unit 11 01/03/2016 Active Saline Nasal [place] 0.65 % Nasal Solution Administer 1 [place] into nostril as needed for Congestion. 0 Active diphenhydrAMINE (BENADRYL) 25 MG Capsule Use 1 or 2 tabs as needed at bedtime for worsening nasal allergy symptoms 50 Cap 1 05/17/2016 Active MEDICAL INSTRUCTIONS Patient has sleep apnea and is on CPAP machine at night. 1 Each 1 10/04/2016 Active Magnesium Oxide 400 (241.3 Mg) MG Oral TabletIndications:Mi graine without aura and without status migrainosus, not intractable Take 400 mg by mouth every other day. -st 06/13/2020-feb 19 1 Tab 0 09/11/2020 Active Ibuprofen 600 MG Oral Tablet (Motrin)Indications: Chronic pain of right knee,Arthritis of right knee,Knee effusion, right,Patellar tracking disorder of right knee Take 1 Tablet by mouth every 8 hours as needed (Pain). with food for 1 week then as needed--use for pain and swelling knee 30 Tab 1 09/11/2020 Active CPAP every night at bedtime . 0 Active Ketotifen Fumarate 0.025 % Ophthalmic Solution (Zaditor)Indications :Chronic allergic conjunctivitis Instill 1 Drop into both eyes as needed (as needed for dry eyes). 5 mL 0 10/02/2021 Active Vitamin D3 50 MCG (1999 UT) Oral Capsule Take 1 Capsule by mouth in the morning. 0 Active Fluticasone Propionate 50 MCG/ACT Nasal Suspension (Flonase) Administer 1 [place] into each nostril in the morning and 1 [place] before bedtime. 48 mL 3 05/22/2022 Active Denosumab 60 MG/ML Subcutaneous Solution Prefilled Syringe (Prolia)Indications: Traumatic compression fracture of L4 lumbar vertebra with routine healing, subsequent encounter,Other closed fracture of fifth lumbar vertebra with routine healing, subsequent encounter Inject 60 mg under the skin once. --- started by [facility] provider 04/29/22 1 Each 0 10/08/2022 Active Atorvastatin Calcium 40 MG Oral Tablet (Lipitor)Indications :Mixed dyslipidemia Take 1 Tablet by mouth in the morning. 90 Tablet 3 02/27/2023 Active Azelastine HCl 0.1 % Nasal Solution (Astelin) USE 2 SPRAYS IN EACH NOSTRIL TWICE A DAY 90 mL 3 02/27/2023 Active Esomeprazole Magnesium 20 MG Oral Capsule Delayed ReleaseIndications:G astroesophageal reflux disease without esophagitis Take 1 Capsule by mouth in the morning. 1 hour before the first meal of the day. 90 Capsule 3 02/27/2023 Active Lisinopril 2.5 MG Oral Tablet (Prinivil)Indication s:Type 2 diabetes mellitus with hemoglobin A1c goal of less than 7.0% (HCC) Take 1 Tablet by mouth in the morning. 90 Tablet 3 02/27/2023 Active metFORMIN HCl ER 500 MG Oral Tablet Extended Release 24 Hour (Glucophage XR)Indications:Type 2 diabetes mellitus with hemoglobin A1c goal of less than 7.0% (HCC) Take 2 Tablets by mouth in the morning and 2 Tablets before bedtime. 360 Tablet 3 02/27/2023 Active SUMAtriptan Succinate 100 MG Oral TabletIndications:Ty pe 2 diabetes mellitus with hemoglobin A1c goal of less than 7.0% (HCC),Migraine without aura and without status migrainosus, not intractable TAKE 1 TABLET ONCE FOR 1 DOSE AT START OF MIGRAINE, MAY REPEAT IN 2 HOURS MAX 2 TABLETS PER 24 HOURS (rare use)--has med at home, last RX 06/05 with 2 rf 0 04/22/2023 Active oxyBUTYnin Chloride 5 MG Oral Tablet (Ditropan)Indication s:Mixed incontinence urge and stress Take 0.5 Tablets by mouth in the morning. -pt dec in 12/07 as felt not emptying. 0 04/22/2023 Active Amoxicillin 500 MG Oral Capsule (Amoxil)Indications: Chronic frontal sinusitis Take 1 Capsule by mouth in the morning and 1 Capsule at noon and 1 Capsule before bedtime. Do all this for 7 days. 21 Capsule 0 06/26/2023 4 Active Dulaglutide 0.75 MG/0.5ML Subcutaneous Solution Pen-injector (Trulicity)Indicatio ns:Type 2 diabetes mellitus with hemoglobin A1c goal of less than 7.0% (HCC),Severe obesity (BMI 35.0-39.9) with comorbidity (HCC) Inject 0.75 mg under the skin once a week. 6 mL 0 06/30/2023 Active documented as of this encounter (statuses as of 07/01/2023) Active Problems Problem Noted Date Diagnosed Date Screening for osteoporosis 03/26/2020 Overview: 04/06-LR--rpt 5 yrs. PAIGE on CPAP 07/17/2016 Overview: 08/31-CPAP 9 cwp 07/31-Start a cpap autotitrator with pressures of 5-15cwp with heated humidity AHP HST 06/28/16: AHI 10.9, <89% 5.6 mins Mixed rhinitis 05/17/2016 Allergic rhinitis due to dust mite 05/17/2016 Nasal valve collapse 05/17/2016 Mixed incontinence urge and stress 02/09/2016 Overview: St oxy 12/30(+ newly diagDM) Fatty liver 01/03/2016 Type 2 diabetes mellitus wit h hemoglobin A1c goal of less than 7.0% 01/02/2016 Mixed dyslipidemia 01/02/2016 Encounter for screening mammogram for breast can cer 12/15/2015 Overview: Benign ca + 02/28;neg 02/23/16;03/02-scattered Fg densities Pap smear for cervical cancer screening 12/15/19 16 Overview: Neg 2007,,11/29;05/05; Family history of diabetes mellitus 12/15/2015 Overview: Father at age 65 Deviated nasal septum 12/15/2015 Overview: Christina miranda--consider SRP if int-await allergy+sleep med ruben Snoring 12/15/2015 History of tobacco use 12/15/2015 Overview: 03/2020-no AAA, mod hepatic steatosis. Arthritis of knee, right 12/15/2015 Overview: Medial >lat based on exam Gastroesophageal reflux disease without esophagi tis 11/15/2015 Overview: 05/31-Ba SW-sm HH, mod reflux with spasm/dysmotility 11/30--nexium otc x 1 yr, USRUQ--neg ex fatty liver. History of colonic polyps 02/23/2013 Overview: 02/22/13: 8 mm adenoma of sigmoid colon, repeat 5 years>>05/05-2 P TC, 1 SC, IH, sig tics,HPP+TAP rpt 3 yrs documented as of this encounter (statuses as of 07/01/2023) Resolved Problems Problem Noted Date Diagnosed Date Resolved Date Abnormal transaminases 01/02/201604/11 Severe obesity with body mas s index (BMI) of 35.0 to 39.9 with serious comorbidity 08/28/2009 Overview: ICD-10 update of inactive diagnosis ADVANCE DIRECTIVE INFORMATION 01/13/2007 12/15/2015 Overview: No, Advance Directive brochure given to patient at prior appointment. Perennial allergic rhinitis with seasonal variation 01/13/2004 05/17/2016 Overview: Daily nata, benadryl, nasacort documented as of this encounter (statuses as of 07/01/2023) Immunizations Name Administration Dates Next Due COVID-19 mRNA, LNP-s, No Pre serve, 2-Dose Series (Moderna) 06/19/2020,05/22/2020 COVID-19, MRNA-LNP, 23-24, P F, 30 MCG/0.3 mL, 12 YRS AND ABOVE, IM (PFIZER-Comirnaty) 12/20/2022 COVID-19, mRNA, LNP-s, PF, B ooster, 100mcg/0.5mg (Moderna) 01/30/2021 Covid-19, Mrna, Lnp-s, Pf, B ivalent, 30 Mcg, IM, 12 yrs and above (Pfizer) 01/31/2022 Hepatitis B, 20+ yrs 05/21/2023,04/22/2023 Pneumococcal Conjugate Vacc, 13 Valent (Prevnar) 04/05/2016 Pneumococcal Polysaccharide PPV23 (Pneumovax) 10/08/2022,09/09/2017 RSV Vac., Recomb, Adjuvant, PF,0.5 Ml (Arexvy) 01/09/2023 Season Influenza, Quad, PF, Adjuvanted, 65+ Yrs, IM (FLUAD) 01/02/2022 Seasonal Influenza Virus Vac cine, Unspecified Formulation 11/24/2018,12/30/2017,12/27/2016,12/14,11/29/2008 Seasonal Influenza, PF, 6 M & above, IM , (FluLaval or Fluzone) 11/24/2018 Seasonal Influenza, Quadriva lent Hd (Fluzone Hd) 12/20/2022,02/02/2021 Seasonal Influenza, Quadriva lent Hd, 65+ Yrs 01/02/2022,12/24/2019 Seasonal Influenza, Quadriva lent, No Preserve, IM 12/15/2015,12/13/2014 Seasonal Influenza, Quadriva lent, No Preserve, Mdck 12/30/2017 Seasonal Influenza, Split, I IV3, With Preserve, Inj 12/27/2016,02/04/2014,12/18/2012,11/30,11/29/2008 TD, Preservative Free 03/20/2021 TDAP (age 11 and older)(Adacel) 11/30/2010 Varicella Zoster Vaccine (Adult) 12/23/2014 Zoster Vaccine Recombinant (Shingrix) 01/25/2019 ,11/24/2018 documented as of this encounter Social History Tobacco Use Types Packs/Day Years Used Date Smoking Tobacco: Former Cigarettes 1 20 0 03/17/1977 - 03/17/1997 Smokeless Tobacco: Never Comments:no passive smoke Alcohol Use Standard Drinks/Week Comments Yes 3.3 (1 standard drink = 0.6 oz p ure alcohol) occ PHQ-2 Answer Date Recorded PHQ Adult Total Score 0 10/08/2022 Hunger Vital Sign Answer Date Recorded Within the past 12 months, y ou worried that your food would run out before you got the money to buy more. Never true 09/25/19 23 Within the past 12 months, t he food you bought just didn't last and you didn't have money to get more. Never true 09/24/2022 Sex and Gender Information Value Date Recorded Sex Assigned at Female 08/24/2019 11:29 AM EDT Gender Identity Female 08/24/2019 11:29 AM EDT Sexual Orientation Straight 08/24/2019 11 :29 AM EDT Job Start Date Occupation Industry Not on file Not on file Not on file documented as of this encounter Miscellaneous Notes * Telephone Encounter - Ольга Shah RPh - 07/01/2023 1:30 PM EDTRefused Prescriptions: Disp Refills Trulicity 0.75 MG/0.5ML Subcutaneous Solut* 3 Sig: INJECT 0.75MG (1 PEN) UNDER THE SKIN EVERY WEEKRefused By: ОЛЬГА SHAH LReason for Refusal: Duplicate Request-- documented in this encounter Plan of Treatment Upcoming Encounters Date Type Department Care Team (Late st Contact Info) Description 07/22/2023 9:20 AM EDT Office Visit General Internal Medicine [facility] [place] [address] [place] [address] Gisela Hedrick MD [address] [place] [address] 08/18/2023 3:00 PM EDT Imaging Radiology, [place] [id number] [facility] [place] [address] 10/23/2023 8:00 AM EDT [facility] [address] [place] [address] Nurse, Int Med [address] [facility] [place] [address] 03/15/2024 10:00 AM EST Office Visit [facility] Disorders [facility] [address] [place] [phone] Tash Jacobo, [address] [place] [address] 04/30/2024 9:30 AM EST Office Visit Allergy/Immunology [facility] [address] [place] [address] Ambrocio Alexis MD [address] [place] [address] Scheduled Procedures Name Priority Associated Diagnoses Date/Ti me COLONOSCOPY FLEXIBLE PROXIMA L DIAGNOSTIC Recall History of colonic polyps Health Maintenance Due Date Last Done Comments HbA1c 10/08/2023 04/09/2023, 09/14, 03/26/2022, Additional history exists Depression Screening 10/09/2023 10/08/2022, 12/14/19 15 Diabetic Foot Exam 10/09/2023 10/08/2022, 0 10/02/2021, 09/11/2020, Additional history exists Hepatitis B (3 of 3 - 19+ 3-dose series) 10/21/2023 05/21/2023, 04/22/2023 Diabetic Eye Exam 01/16/2024 01/15/2023, , 01/24/2021, Additional history exists Mammogram 03/28/2024 03/28/2023, 06/2022, 03/20/2022, Additional history exists Albumin/Creatinine Ratio 04/09/20242 024, 03/29/2022, 09/10/2021, Additional history exists B-12 04/09/2024 04/09/2023, 09/14, 09/10/2021, Additional history exists GFR 04/09/2024 04/09/2023, 09/14, 03/26/2022, Additional history exists COLONOSCOPY-EVERY 5 YRS AGES 18-100 06/07/2026 06/07/2021, 06/07/2021, 04/30/2018, Additional history exists DXA Scan 03/20/2027 03/20/2020, 03/20/2020 Lipid Panel 04/09/2028 04/09/2023, 03/18, 09/30/2022, Additional history exists DTaP,Tdap,and Td Vaccines (3 - Td or Tdap) 03/20/2031 03/20/2021, 11/30/2010, 02/10/2004 Zoster Vaccines Completed 01/25/2019, 11/15, 12/23/2014 COLONOSCOPY-EVERY 3 YRS AGES 18-100 Discontinued 06/07/2021, 06/07/2021, 04/30/2018, Additional history exists Pneumococcal Vaccine: 65+ Years Completed 10/08/2022, 09/09/2017, 04/05/2016 COVID-19 Vaccine Completed 12/20/2022, , 01/30/2021, Additional history exists Influenza Vaccine (FLU shot) Completed 12/20/2022, 01/02/2022, 01/02/2022, Additional history exists GARDASIL-HPV IMMUNIZATION SERIES Aged Out No longer eligible based on patient's age to complete this topic MENINGOCOCCAL (MENACTRA/MENVEO) Aged Out No longer eligible based on patient's age to complete this topic documented as of this encounter Medical Devices Implanted Type Area Supply Chain Analyst Device Identifier Shelf Expiration Date Model / Serial / Lot 03/19 Tubular Plates 83 Length 7 Holes Implanted:Qty: 1 on 06/06/2017 by Glenys Rogel DPM at OR [facility] Left: Ankle NIKOLAY [id number] / / 3.5mm Locking Screw 12 Mm Length Implanted:Qty: 1 on 06/06/2017 by Glenys Rogel DPM at OR [facility] Left: Ankle NIKOLAY [id number] / / 3.5mm Locking Screw 14mm Implanted:Qty: 2 on 06/06/2017 by Glenys Rogel DPM at OR [facility] Left: Ankle NIKOLAY [id number] / / 3.5mm Locking Screw 50mm Implanted:Qty: 1 on 06/06/2017 by Glenys Rogel DPM at OR [facility] Left: Ankle NIKOLAY [id number] / / 3.5 Non Locking Screw 12mm Implanted:Qty: 1 on 06/06/2017 by Glenys Rogel, DPM at OR [facility] Left: Ankle NIKOLAY [id number] / / documented as of this encounter Visit Diagnoses Diagnosis Type 2 diabetes mellitus with hemoglobin A1c goal of less than 7.0% (HCC) Severe obesity (BMI 35.0-39.9) with comorbidity (HCC) Morbid obesity documented in this encounter Care Teams Stonemason Helper Relationship Specialty Start Date End Date Gisela Hedrick MD [address] [place] [address] PCP - General Internal Medicine 03/04/22 documented as of this encounter
--- OUTSIDE RECORDS SUMMARY | 2023-07-23 20:09 | External Medical Summary | Summary of Care ---
Author Name Unknown Organization [facility] Address [address] [place] [address] Phone [phone] Care Team Providers Care Instrumental Musician Name Role Phone Gisela Hedrick MD Primary Care Provider [phone] Reason for Visit * Reason Comments Ear Problem Ears crackle when sh e opens her mouth and jaw, left ear is worse than right. Also having some nasal congestion with beige colored mucus. Has been going on for months. Encounter Details Date Type Department Care Team (Latest Contact Info) Description 06/26/2023 10:20 AM EDT Office Visit General Internal Medicine [facility] [address] [place] [address] Luz Correa MD [address] [place] [address] Chronic frontal sinusitis*; TMJ (sprain of temporomandibular joint), initial encounter; Mixed rhinitis; Allergic rhinitis due to dust mite; Type 2 diabetes mellitus with hemoglobin A1c goal of less than 7.0% ([facility]); History of tobacco use; Arthritis of knee, right Allergies Active Allergy Reactions Criticality Noted Date Comments Pollen Low 06/21/2016 Rhinitis Mites 06/21/2016 documented as of this encounter (statuses as of 07/06/2023) Medications Medication Sig Dispensed Refills Start Date End Date Status MULTI-DAY VITAMINS PO TABS once a day 0 10/06/200 6 Active aspirin enteric coated 81 MG TBECIndications:Ty pe 2 diabetes mellitus with hemoglobin A1c goal of less than 7.0% (HCC) Take 1 Tab by mouth daily. 100 Tab 3 6 Active Glucose Blood (ONETOUCH ULTRA BLUE) STRPIndications:Ty pe 2 diabetes mellitus with hemoglobin A1c goal of less than 7.0% (HCC) Use up to 3 times a day as directed--E11. 9 100 Strip 11 6 Active Blood Glucose Monitoring Suppl (Prolifiq SoftwareTOUCH ULTRA SYSTEM) W/DEVICE KITIndications:Typ e 2 diabetes mellitus with hemoglobin A1c goal of less than 7.0% (HCC) Use up to 3 times a day as directed--E11. 9 1 Kit 0 6 Active ONETOUCH ULTRASOFT LANCETS MISCIndications:Ty pe 2 diabetes mellitus with hemoglobin A1c goal of less than 7.0% (HCC) Use up to 3 times a day as directed--E11. 9 1 Box Dosing Unit 11 6 Active Saline Nasal Saline 0.65 % Nasal Solution Administer 1 Saline into nostril as needed for Congestion. 0 Active diphenhydrAMINE (BENADRYL) 25 MG Capsule Use 1 or 2 tabs as needed at bedtime for worsening nasal allergy symptoms 50 Cap 1 7 Active MEDICAL INSTRUCTIONS Patient has sleep apnea and is on CPAP machine at night. 1 Each 1 7 Active Magnesium Oxide 400 (241.3 Mg) MG Oral TabletIndications: Migraine without aura and without status migrainosus, not intractable Take 400 mg by mouth every other day. -st 06/13/2020-feb 19 1 Tab 0 1 Active Ibuprofen 600 MG Oral Tablet (Motrin)Indication s:Chronic pain of right knee,Arthritis of right knee,Knee effusion, right,Patellar tracking disorder of right knee Take 1 Tablet by mouth every 8 hours as needed (Pain). with food for 1 week then as needed--use for pain and swelling knee 30 Tab 1 1 Active CPAP every night at bedtime . 0 Active Ketotifen Fumarate 0.025 % Ophthalmic Solution (Zaditor)Indicatio ns:Chronic allergic conjunctivitis Instill 1 Drop into both eyes as needed (as needed for dry eyes). 5 mL 0 2 Active Vitamin D3 50 MCG (2000 UT) Oral Capsule Take 1 Capsule by mouth in the morning. 0 Active Fluticasone Propionate 50 MCG/ACT Nasal Suspension (Flonase) Administer 1 Saline into each nostril in the morning and 1 Saline before bedtime. 48 mL 3 3 Active Denosumab 60 MG/ML Subcutaneous Solution Prefilled Syringe (Prolia)Indication s:Traumatic compression fracture of L4 lumbar vertebra with routine healing, subsequent encounter,Other closed fracture of fifth lumbar vertebra with routine healing, subsequent encounter Inject 60 mg under the skin once. --- started by [facility] provider 04/29/22 1 Each 0 3 Active Atorvastatin Calcium 40 MG Oral Tablet (Lipitor)Indicatio ns:Mixed dyslipidemia Take 1 Tablet by mouth in the morning. 90 Tablet 3 3 Active Azelastine HCl 0.1 % Nasal Solution (Astelin) USE 2 SPRAYS IN EACH NOSTRIL TWICE A DAY 90 mL 3 3 Active Esomeprazole Magnesium 20 MG Oral Capsule Delayed ReleaseIndications :Gastroesophageal reflux disease without esophagitis Take 1 Capsule by mouth in the morning. 1 hour before the first meal of the day. 90 Capsule 3 3 Active Lisinopril 2.5 MG Oral Tablet (Prinivil)Indicati ons:Type 2 diabetes mellitus with hemoglobin A1c goal of less than 7.0% (HCC) Take 1 Tablet by mouth in the morning. 90 Tablet 3 3 Active metFORMIN HCl ER 500 MG Oral Tablet Extended Release 24 Hour (Glucophage XR)Indications:Typ e 2 diabetes mellitus with hemoglobin A1c goal of less than 7.0% (HCC) Take 2 Tablets by mouth in the morning and 2 Tablets before bedtime. 360 Tablet 3 3 Active SUMAtriptan Succinate 100 MG Oral TabletIndications: Type 2 diabetes mellitus with hemoglobin A1c goal of less than 7.0% (HCC),Migraine without aura and without status migrainosus, not intractable TAKE 1 TABLET ONCE FOR 1 DOSE AT START OF MIGRAINE, MAY REPEAT IN 2 HOURS MAX 2 TABLETS PER 24 HOURS (rare use)--has med at home, last RX 06/05 with 2 rf 0 4 Active oxyBUTYnin Chloride 5 MG Oral Tablet (Ditropan)Indicati ons:Mixed incontinence urge and stress Take 0.5 Tablets by mouth in the morning. -pt dec in 12/07 as felt not emptying. 0 4 Active Ipratropium [place] 0.03 % Nasal Solution (Atrovent)Indicati ons:PAIGE on CPAP,Mixed rhinitis,Nasal valve collapse Administer 2 Sprays into nostril every 8 hours as needed for Rhinitis. 90 mL 0 3 06/26/19 24 Discontinued Dulaglutide 0.75 MG/0.5ML Subcutaneous Solution Pen-injector (Trulicity)Indicat ions:Type 2 diabetes mellitus with hemoglobin A1c goal of less than 7.0% (HCC),Severe obesity (BMI 35.0-39.9) with comorbidity (HCC) Inject 0.75 mg under the skin once a week. 6 mL 0 4 06/30/19 24 Discontinued(Re fill) Amoxicillin 500 MG Oral Capsule (Amoxil)Indication s:Chronic frontal sinusitis Take 1 Capsule by mouth in the morning and 1 Capsule at noon and 1 Capsule before bedtime. Do all this for 7 days. 21 Capsule 0 4 07/03/19 24 documented as of this encounter (statuses as of 07/06/2023) Active Problems Problem Noted Date Diagnosed Date [...] cervical cancer screening 12/15/19 16 Overview: Neg 2007,11,11/29;05/05; Family history of diabetes mellitus 12/15/2015 Overview: Father at age 65 Deviated nasal septum 12/15/2015 Overview: Christina miranda--consider SRP if int-await allergy+sleep med eval Snoring 12/15/2015 History of tobacco use 12/15/2015 [...] as of this encounter (statuses as of 07/06/2023) Resolved Problems Problem Noted Date Diagnosed Date [...] as of this encounter (statuses as of 07/06/2023) Immunizations Name Administration Dates Next Due COVID-19 [...] on file documented as of this encounter Last Filed Vital Signs Vital Sign Reading Time Taken Comments Blood Pressure 120/82 06/26/2023 10:11 AM EDT Pulse 61 06/26/2023 10:11 AM EDT Temperature 36.5 C (97.7 F) 06/26/2023 10:11 AM E DT Respiratory Rate - - Oxygen Saturation 97% 06/26/2023 10:11 AM EDT Inhaled Oxygen Concentration - - Weight 102.7 kg (226 lb 8 oz) 06/26/2023 10:11 A M EDT Height - - Body Mass Index 36.56 04/22/2023 9:25 AM EST documented in this encounter Progress Notes * Luz Correa MD - 07/06/2023 10:06 PM EDT I attest that I have reviewed the student note and that the components of the history, the physicalexam, and the assessment and plan documented were performed in my presence with the student where Iverified the documentation and performed (or re-performed) the exam and medical decision making. I spent a total of 32 minutes coordinating, documenting, and providing care for this patient excluding time spent in the performance of separately billed services. A/P: Chronic frontal sinusitis (Primary) - Amoxicillin 500 MG Oral Capsule (Amoxil); Take 1 Capsule by mouth in the morning and 1 Capsule atnoon and 1 Capsule before bedtime. Do all this for 7 days. flonase TMJ (sprain of temporomandibular joint), initial encounter Soft diet, avoid chewing hard food Heat to TMJ Avoid chew gum Ibuprofen 2-3 pills three times a with meal Handout given Mixed rhinitis Allergic rhinitis due to dust mite Type 2 diabetes mellitus with hemoglobin A1c goal of less than 7.0% ([facility]) History of tobacco use Arthritis of knee, right Luz Correa MD 06/26/2023 documented in this encounter Nursing Notes * María Lau LPN - 06/26/2023 10:11 AM EDT Chief Complaint Patient presents with Ear Problem Ears crackle when she opens her mouth and jaw, left ear is worse than right. Also having some nasalcongestion with beige colored mucus. Has been going on for months. documented in this encounter Plan of Treatment Upcoming Encounters Date Type Department Care Team (Late st Contact Info) Description 07/22/2023 9:20 AM EDT Office Visit [facility] Internal [facility] [place] [address] [place] [address] Gisela Hedrick MD [address] [facility] [place] [id number] 08/18/2023 3:00 PM EDT Imaging Radiology, [address] [place] [address] 10/23/2023 8:00 AM EDT Nurse Only Ancillary [facility] [place] [address] [place] [id number] Nurse, Int Med [address] [facility] [place] [address] 03/15/2024 10:00 AM EST Office Visit [facility] Disorders [facility] [address] [place] [phone] Tash Jacobo, [address] [place] [address] 04/30/2024 9:30 AM EST Office Visit Allergy/Immunology [facility] [place] [address] [place] [address] Ambrocio Alexis MD [address] [facility] [place] [address] Scheduled Procedures Name Priority Associated Diagnoses Date/Ti [...] this encounter Medical Devices Implanted Type Area Polyethylene Bag Machine Operator Device Identifier Shelf Expiration Date Model / Serial / Lot 03/19 Tubular Plates 83 Length 7 Holes Implanted:Qty: 1 on 06/06/2017 by Glenys Rogel DPM at OR [facility] Left: Ankle NIKOLAY [id number] / / 3.5mm Locking Screw 12 Mm Length Implanted:Qty: 1 on 06/06/2017 by Glenys Rogel DPM at OR [facility] Left: Ankle NIK[place]AY [id number] / / 3.5mm Locking Screw 14mm Implanted:Qty: 2 on 06/06/2017 by Glenys Rogel DPM at OR [facility] Left: Ankle NIKOLAY [id number] / / 3.5mm Locking Screw 50mm Implanted:Qty: 1 on 06/06/2017 by Glenys Rogel DPM at OR [facility] Left: Ankle NIKOLAY [id number] / / 3.5 Non Locking Screw 12mm Implanted:Qty: 1 on 06/06/2017 by Glenys Rogel DPM at OR [facility] Left: Ankle NIKOLAY [id number] / / documented as of this encounter Visit Diagnoses Diagnosis Chronic frontal sinusitis- Primary TMJ (sprain of temporomandibular joint), initial encounter Mixed rhinitis Chronic rhinitis Allergic rhinitis due to dust mite Type 2 diabetes mellitus with hemoglobin A1c goal of less than 7.0% ([facility]) History of tobacco use Personal history of tobacco use, presenting hazards to health Arthritis of knee, right Unspecified arthropathy, lower leg documented in this encounter Care Teams Instrumental Musician Relationship Specialty Start Date End Date Gisela Hedrick MD [address] [place] [address] PCP - General Internal Medicine 03/04/22 documented as of this encounter
--- OUTSIDE RECORDS SUMMARY | 2023-07-23 20:09 | External Medical Summary | Summary of Care ---
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 Name Role Phone Gisela Hedrick MD Primary Care Provider [phone] Reason for Visit * Reason Comments Follow Up 3 month follow up Encounter Details Date Type Department Care Team (Late st Contact Info) Description 07/22/2023 9:20 AM EDT Office Visit General Internal Medicine [facility] [address] [facility] [address] Gisela Hedrick MD [address] [place] [address] Type 2 diabetes mellitus with hemoglobin A1c goal of less than 7.0% ([facility])*; Severe obesity (BMI 35.0-39.9) with comorbidity (HCC); Deviated nasal septum; Mixed rhinitis; Allergic rhinitis due to dust mite; PAIGE on CPAP; Fatty liver; Excessive cerumen in ear canal, right Allergies Active Allergy Reactions Criticality Noted Date Comments Pollen Low 06/21/2016 Rhinitis Mites 06/21/2016 documented as of this encounter (statuses as of 07/22/2023) Medications Medication Sig Dispensed Refills Start Date End Date Status MULTI-DAY VITAMINS PO TABS once a day 0 12/20/2005 Active aspirin enteric coated 81 MG TBECIndications:Typ e 2 diabetes mellitus with hemoglobin A1c goal of less than 7.0% (HCC) Take 1 Tab by mouth daily. 100 Tab 3 01/03/2016 Active Glucose Blood (ONETOUCH ULTRA BLUE) STRPIndications:Typ e 2 diabetes mellitus with hemoglobin A1c goal of less than 7.0% (HCC) Use up to 3 times a day as directed--E11.9 100 Strip 11 01/03/2016 Active Blood Glucose Monitoring Suppl (StreetSparkTOUCH ULTRA SYSTEM) W/DEVICE KITIndications:Type 2 diabetes mellitus with hemoglobin A1c goal of less than 7.0% (HCC) Use up to 3 times a day as directed--E11.9 1 Kit 0 01/03/2016 Active ONETOUCH ULTRASOFT LANCETS MISCIndications:Typ e 2 diabetes mellitus with hemoglobin A1c goal of less than 7.0% (HCC) Use up to 3 times a day as directed--E11.9 1 Box Dosing Unit 11 01/03/2016 Active Saline Nasal Gillette 0.65 % Nasal Solution Administer 1 Gillette into nostril as needed for Congestion. 0 Active diphenhydrAMINE (BENADRYL) 25 MG Capsule Use 1 or 2 tabs as needed at bedtime for worsening nasal allergy symptoms 50 Cap 1 05/17/2016 Active MEDICAL INSTRUCTIONS Patient has sleep apnea and is on CPAP machine at night. 1 Each 1 10/04/2016 Active Magnesium Oxide 400 (241.3 Mg) MG Oral TabletIndications:M igraine without aura and without status migrainosus, not intractable Take 400 mg by mouth every other day. -st 06/13/2020-feb 19 1 Tab 0 09/11/2020 Active CPAP every night at bedtime . 0 Active Ketotifen Fumarate 0.025 % Ophthalmic Solution (Zaditor)Indication s:Chronic allergic conjunctivitis Instill 1 Drop into both eyes as needed (as needed for dry eyes). 5 mL 0 10/02/2021 Active Vitamin D3 50 MCG (2000 UT) Oral Capsule Take 1 Capsule by mouth in the morning. 0 Active Fluticasone Propionate 50 MCG/ACT Nasal Suspension (Flonase) Administer 1 Gillette into each nostril in the morning and 1 Gillette before bedtime. 48 mL 3 05/22/2022 Active Denosumab 60 MG/ML Subcutaneous Solution Prefilled Syringe (Prolia)Indications :Traumatic compression fracture of L4 lumbar vertebra with routine healing, subsequent encounter,Other closed fracture of fifth lumbar vertebra with routine healing, subsequent encounter Inject 60 mg under the skin once. --- started by [facility] provider 04/29/22 1 Each 0 10/08/2022 Active Atorvastatin Calcium 40 MG Oral Tablet (Lipitor)Indication s:Mixed dyslipidemia Take 1 Tablet by mouth in the morning. 90 Tablet 3 02/27/2023 Active Azelastine HCl 0.1 % Nasal Solution (Astelin) USE 2 SPRAYS IN EACH NOSTRIL TWICE A DAY 90 mL 3 02/27/2023 Active Esomeprazole Magnesium 20 MG Oral Capsule Delayed ReleaseIndications: Gastroesophageal reflux disease without esophagitis Take 1 Capsule by mouth in the morning. 1 hour before the first meal of the day. 90 Capsule 3 02/27/2023 Active Lisinopril 2.5 MG Oral Tablet (Prinivil)Indicatio ns:Type 2 diabetes mellitus with hemoglobin A1c [...] 02/27/2023 Active SUMAtriptan Succinate 100 MG Oral TabletIndications:T ype 2 diabetes mellitus with hemoglobin A1c goal of less than 7.0% (HCC),Migraine without aura and without status migrainosus, not intractable TAKE 1 TABLET ONCE FOR 1 DOSE AT START OF MIGRAINE, MAY REPEAT IN 2 HOURS MAX 2 TABLETS PER 24 HOURS (rare use)--has med at home, last RX 06/05 with 2 rf 0 04/22/2023 Active oxyBUTYnin Chloride 5 MG Oral Tablet (Ditropan)Indicatio ns:Mixed incontinence urge and stress Take 0.5 Tablets by mouth in the morning. -pt dec in 12/07 as felt not emptying. 0 04/22/2023 Active Dulaglutide 0.75 MG/0.5ML Subcutaneous Solution Pen-injector (Trulicity)Indicati ons:Type 2 diabetes mellitus with hemoglobin A1c goal of less than 7.0% (HCC),Severe obesity (BMI 35.0-39.9) with comorbidity (HCC) Inject 0.75 mg under the skin once a week. 6 mL 0 06/30/2023 Active Dulaglutide 1.5 MG/0.5ML Subcutaneous Solution Pen-injector (Trulicity)Indicati ons:Type 2 diabetes mellitus with hemoglobin A1c goal of less than 7.0% (HCC),Severe obesity (BMI 35.0-39.9) with comorbidity (HCC),Fatty liver Inject 1.5 mg under the skin once a week. Inc 07/22/2023 (use 2 x 0.75 mg/0.5 ml till done and then start new RX 1.5 mg/0.5 ml inj) 8 mL 0 07/22/2023 Active Ibuprofen 600 MG Oral Tablet (Motrin)Indications :Chronic pain of right knee,Arthritis of right knee,Knee effusion, right,Patellar tracking disorder of right knee Take 1 Tablet by mouth every 8 hours as needed (Pain). with food for 1 week then as needed--use for pain and swelling knee 30 Tab 1 09/11/2020 4 Discontinu ed(End of Procedure) documented as of this encounter (statuses as of 07/22/2023) Active Problems Problem Noted Date Diagnosed Date [...] SC, IH, sig tics,HPP+TAP rpt 3 yrs Severe obesity (BMI 35.0-39.9) with comorbidity 08/28/2009 Overview: ICD-10 update of inactive diagnosis documented as of this encounter (statuses as of 07/22/2023) Resolved Problems Problem Noted Date Diagnosed Date Resolved Date Abnormal transaminases 01/02/201604/11 ADVANCE DIRECTIVE INFORMATION 01/13/2007 12/15/2015 Overview: No, Advance Directive brochure given to patient at prior appointment. Perennial allergic rhinitis with seasonal variation 01/13/2004 05/17/2016 Overview: Daily nata, benadryl, nasacort documented as of this encounter (statuses as of 07/22/2023) Immunizations Name Administration Dates Next Due COVID-19 [...] Sign Reading Time Taken Comments Blood Pressure 110/80 07/22/2023 9:40 AM EDT Pulse 60 07/22/2023 9:40 AM EDT Temperature 36.6 C (97.8 F) 07/22/2023 9:40 AM ED T Respiratory Rate 16 07/22/2023 9:40 AM EDT Oxygen Saturation - - Inhaled Oxygen Concentration - - Weight 103.4 kg (228 lb) 07/22/2023 9:40 AM EDT Height - - Body Mass Index 36.8 04/22/2023 9:25 AM EST documented in this encounter Progress Notes * Gisela Hedrick MD - 07/22/2023 9:47 AM EDT SUBJECTIVE: Prisca Quinones is a 61 year old female. 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 Started metformin 500mg bid And inc to 1000mg bid after 1 mth, asa 81 mg, lipitor 10mg--beena all meds. Had asked chg XR in August but was ok with using 1000mg bid. 04/02-will add low dose lisinopril for renal protection.. 09/03-lost to 236 lbs 12/03 and gained back to 243 lbs.has sweet tooth fot ice cream and chocolate.know needs to cut back. Has been walking when possible.' 03/05-FBS 130-140, walking 5d/wk 30-60 min, was working PT 15-20 hrs/wk Willing to St ozempic; rare episode of diarrhea -maybe q 3wks and has to go 3-4 times,defers chg metformin to XR 06/04-started Ozempic 0.25 mg per week on 03/04/2020 and increased 2.5 mg a after 4 weeks, has lost weight to 220 lb, has mild nausea but overall tolerating it better, blood sugar this morning was 103no symptoms of hypoglycemia.-cost her $300 1st Rx ,2nd was 170.[address] ct. Defers changing metformin ER Advised if any problems with low sugar we can decreased dose of metformin to 1500 mg per day. 09/04--total wt loss 26 lbs 03/06--ozempic is expensive-$500.00, has 2 mth supply, alternate med suggested by nomi was only 50 $ lower--will try to dec dose to 0.25mg and monitor., consider chg to glipizide next yr.--on metfER 4/d fbs 80-83. 10/05--gained back wt With lowering dose ozempic, to ch with insurance reg cost of rybelsus 04/08--is off ozempic sec cost, a1c higher due to less activity sp fall and fracture left radius, comp frac L4 10/06--slow wt gain now since lumbar fracture, now shoulder problems, a1c at goal 04/09--wt stable in 6 mths , A1c higher, willing to start trulicity 08/07-tolerating Trulicity well, states her 1st prescription cost her about 1000 dollars in the next1 was between 600-800, lost 8 lbs , no symptoms of hypoglycemia blood sugars have been ranging 110-120. To look into patient assistance programs or check with the pharmacy if they have any additional coupons, trial of increasing dose to help with weight loss, previous imaging has shown moderate hepatic steatosis, ALT has been normalizing Foot exam-nml 12/30,07/01; 09/01-has callus will see podiatry--09/11/2020>10/05>10/06 Eye exam- 07/30 Jamin---12/31, 01/01;01/02;01/03, 02/04>01/24/22--watching cataracts ou, no DR WARREN [place] neg 04/02;04/03, 04/04;09/03;09/04; 40 10/05?sec wt gain as a1c nml, 04/08;05/10 B12 [address] with suppl st 09/01. Level 231-->2000-dec 3d/wk 09/11/2020>1128 10/05>1854 10/06--will dc and monitor>nml 05/10 Mod Fatty liver on RUQ US 11/30 Ast/alt improved with ctr blood sugar --sl up from wt gain;Resolved with dec wt>back high at 44-nml with wt loss 09/04>nml 03/06 Has sev DNS to rt , + snoring--noted at 1st visit for ac sinusitis 10/30- Rx zpak--no am fatigue, noHA, mild DTS Tried Nasal strips and told her it did not make a difference. Using NSS hs and nasacort. Saw Christina--consider SRP if int-await allergy+sleep med ruben Saw trade economist--inc dose astelin 2s bid last wk as had inc nasal congestion, and in feb had left maxsinus pain(dental exam nml 04/04) Had fu 05/06, no sx 08/24/201904/08--using benadryl at hs most days--to DC sec risk fall, trial adding atrovent NS qid prn, f/u Malini 04/18/2208/07-had symptoms of postnasal drainage and nasal congestion, she is using Astelin twice daily, Flonase twice daily, did start using a Neti pot daily for few days and then twice a week, was treated for possible sinusitis with amoxicillin 06/26/2023 for 7 days, saw trade economist in April and was advised to continue with medications and consider immunotherapy If symptoms persisted and if ct sx consider f/u ENT for DNS OSAS:diag 07/01 HST 06/28/16: AHI 10.9, <89% 5.6 mins 07/31-Start a cpap autotitrator with pressures of 5-15cwp with heated humidity- 08/31-CPAP 9 cwp --- (AHP). 05/23/20-was chg to 7-10 cwp --has nasal mask waking up with Headache 03/06-flonase at hs, saw trade economist 05/08--rec astelin bid 10/05--had severe conj erythema --was todl sec to allergies by her gabo dr and to use zaditor, advisedto try dailyif recurs and add naphcon a prn., AT qid., cool compress. 04/08--add atrovent 05/10--had fu dec Ex smoker--1ppd x 15 yrs, quit 1997 AAA scr at age 64--neg, mod hepatic steatosis H/o migraine --12/30 had sx 1 every 2 mths, needs 2-3 tabs imitrex over 24-48 hrs. Mostly Rt sided-temporal, no aura, +photophobia, no visual scintillations,no nausea/vomiting 04/03--since st nasal sprays migraines have improved . 09/03-last use imitrex 1 wks--has to use 3 tabs in a row.. 06/04-started riboflavin 03/05 for migraine prevention, last prescription Imitrex 04/10/2020 has used4/9 tablets, symptoms suggest headache may be related to Co2 build up as waking up with SANTANA but not much during day.-had CPAP adjustment done recently No loss of balance, recommend adding magnesium supplement to 400 mg per day, watch for side effectsof diarrhea. If symptoms persist will need to consider imaging of the brain. Recommend trying wedgepillow. 03/06-sleeping on sides, SANTANA base of head and occ in temporal Area, feels tight in neck at times No BOV/DV/weakness extremities. Taking imitrex prn only--last RX 9 tabs in Mar(had med left from prior rx) 04/08-no rec SANTANA Stress and urge incontinence started on Ditropan 5mg 11/30--1/2 tab bid with improved symptoms; did have some dry mouth initially but that has been better now.--now 1/2 tab in am only since 07/31>bid 04/03 10/06- continues to have urge incontinence, sometimes she leaks when she gets up from a chair, frequency of urination during the day at least 8 times some stress incontinence. Willing to increase dose of oxybutynin to 5 mg twice daily, if symptoms not improved with timed voiding and the medication changes to call for referral to uro technical spec. Denies any prolapse, no vaginal discharge, no dysuria. 05/10--taking only 2.5 mg in am since 12/07 as she felt she was not emptying her bladder completely GERD>11/30--nexium otc x 1 yr, Us RUQ--neg ex fatty liver. Has rec sx if stops med x 1 day--to try zantac 150mg bid few d /wk No dysphagia 05/03--Ba Swallow- sm HH, mod reflux with spasm/dysmotility 04/03-ct ppi 10/01--had inc sx when on pred and with milk shake in pm. Using 1 pillow at hs--try 2 /raise H/e bed up 09/04--no sx reflux 04/08-remains on OTC esomeprazole Had mammo neg 03/01 , [facility]-03/02-FG breast., same 03/03, 03/08/19-neg, benign Ca+>neg 03/09/20 >neg 03/14/21>03/20/22> neg 03/28/23 PAP neg -Neg 2007,2010;11/29,04/2018 Colonoscopy >02/22/13: 8 mm adenoma of sigmoid colon, repeat 5 years 04/30/18-- -2 P TC, 1 SC, IH, sig tics,HPP+TAP rpt 3 yrs- 06/07/21--sig tics,IH, ow nml--rpt 5 yrs>05/2026 Baseline DEXA scan 03/20/2020 was low risk, repeat in 5 years >03/2025 Had prob with Rt hand tenosynovitis--did use medrol dose olman in August and saw ortho in October 01 whogave 2nd dose olman. Sx sl better,steroid inj 10/22/17 with 100% relief. Had fracture left fibula 05/21/17 and had ORIF H/o rt ankle sprain in 2013, xr neg ex mild enthesopathy quad tendon;;prior h/o left 5th MT frac. Has callus lef foot--saw podiatry 01/02 who debrided the area. Has recurred, is using OTC corn padsbut one under foot persists. 03/05-has not tried the Amlactin yet recommended to F/u podiatry 09/14/20.--saw podaitry and had callus pared. h/o pain lat aspect knee-bending,afer sitting, up/down steps, yoga -seeing chiro,, no swelling knee.played racquet ball in past Xray 09/11/20--Mild osteophyte formation with preserved joint spaces 10/05 -About a month ago she bumped her right thumb against something ,nail was partially cut, has pain and slight swelling on the lateral aspect of the nail, she has tried [id number] antibioticcream, Epsom salt soaks without much improvement. No redness at the site or discharge. No fever or chills. 04/08--seen 02/04/22 for LBP Rt >lt, no sciatica/bruising status post fall on outstretched hand and back at the [facility] 02/03/22; had radius fracture, which was casted, follows up with Dr. Magaña. 02/04/11- x-ray lumbar spine showed age-indeterminate depression of L4 vertebral body, superior endplate, grade 1 anterolisthesis L3 on 4 and L4 on 5, multilevel disc degeneration severe at L5-S1 with multilevel facet arthritis greatest at the lumbosacral junction. -was given baclofen which she took at night, had continued to have pain.' MRI lumbar spine was ordered-[facility] 03/07/22, but cx due to weather had it 04/02/22> IMPRESSION: Subacute appearing mild L4 compression fracture with less than 50% vertebral body height loss and associated bony retropulsion. Suspected subacute unilateral right L5 pars fracture with localized surrounding marrow edema which is not well characterized with MRI modality. Elevation of the posterior longitudinal ligament over the L4 vertebral body related to bony retropulsion versus focal small ventral epidural hematoma/fluid collection measuring approximately 4-5 mm in thickness. Bony retropulsion, ventral epidural thickening, and degenerative changes contributing to focal moderate spinal canal and right foraminal narrowing at L3-L4. Lumbar spondylosis with multilevel foraminal narrowing as described, including severe left foraminal narrowing at L5-S1 related to a left foraminal disc protrusion. --followed by Rheumatology at [facility] and states they were planning to order medication for treating osteoporosis and is awaiting approval, discussed media calcium nasal spray may be an option. Back pain persists with movement., will refer to pain clinic at [facility] for further eval. Will have nurse fax MRI report to pain clinic and to Device Sales Consultant GURMEET Smith at [facility]. 03/26/22--nml CMP, TSH,PTH, VD 37, phos 4.3 10/06---seeing a provider at [facility], was started on Prolia 04/29/2022, has not had a repeat bone density prior to starting medication. she has not been on any other off medications for osteoporosis. She has appointment with them in October and will discuss -end of July she injured her right shoulder when she for lung a heavy file on a table. Has been following up with [facility], is in physical therapy, also taking ibuprofen at least twice daily, shoulder range of motion has improved. 05/10-continues to have some discomfort in her left wrist was told she may have arthritis Had donated blood in 2013. Immunizations are uptodate. , hep B 3 due in oct Hemoglobin AIC Results: Lab Results Component Value Date/Time HEMOGLOBIN A1C - [facility] 7.4 (H) 04/09/2023 07:10 AM HEMOGLOBIN A1C - [facility] 6.4 (H) 09/30/2022 07:20 AM HEMOGLOBIN A1C - [facility] 6.3 (H) 03/26/2022 07:11 AM HEMOGLOBIN A1C - [facility] 7.6 (H) 02/18/2020 07:09 AM HEMOGLOBIN A1C - [facility] 7.3 (H) 08/20/2019 07:26 AM HEMOGLOBIN A1C - [facility] 6.9 (H) 11/20/2018 07:26 AM Hemoglobin Results: Lab Results Component Value Date/Time HGB 14.2 04/09/2023 07:10 AM HGB 14.2 03/12/2021 07:06 AM HGB 13.8 05/22/2017 08:59 AM HGB 14.6 12/29/2015 07:46 AM HGB 15.0 (H) 06/09/2009 01:27 PM TSH Results: Lab Results Component Value Date/Time TSH - [facility] 3.01 03/26/2022 07:11 AM TSH - [facility] 2.28 12/29/2015 07:46 AM TSH - [facility] 3.51 02/11/2004 08:40 AM ALT Results: Lab Results Component Value Date/Time ALT - [facility] 27 04/09/2023 07:10 AM ALT - [facility] 22 03/26/2022 07:11 AM ALT - [facility] 16 09/10/2021 07:04 AM ALT - [facility] 38 (H) 02/18/2020 07:09 AM ALT - [facility] 44 (H) 08/20/2019 07:26 AM ALT - [facility] 30 11/20/2018 07:26 AM Results for orders placed or performed in visit on 04/09/23 VITAMIN B12 Result Value Ref Range Vitamin B12 395 232 - 1,245 pg/mL ALT Result Value Ref Range ALT 27 10 - 35 U/L BASIC METABOLIC PANEL Result Value Ref Range BUN 15 6 - 20 mg/dL Creatinine 0.8 0.5 - 1.0 mg/dL Estimated Glomerular Filtration Rate 81 >=60 mL/min Sodium 140 135 - 146 mmol/L Potassium 4.6 3.5 - 5.1 mmol/L Chloride 102 98 - 107 mmol/L CO2 26 22 - 32 mmol/L Anion Gap 12 7 - 15 mmol/L Glucose 152 (H) 70 - 120 mg/dL Calcium 9.6 8.4 - 10.2 mg/dL LIPID PANEL WITH DIRECT LDL IF TG IS HIGH Result Value Ref Range Triglycerides 139 <=174 mg/dL Cholesterol 138 <200 mg/dL HDL Cholesterol 44 (L) >49 mg/dL Non-HDL Cholesterol 94 <=159 mg/dL LDL Cholesterol 66 <=129 mg/dL HEMOGLOBIN A1C Result Value Ref Range Hemoglobin A1C 7.4 (H) 4.0 - 5.6 % Estimated Average Glucose 166 (H) <126 mg/dL LDL CHOLESTEROL (DIRECT MEASURE) Result Value Ref Range LDL Cholesterol (Direct Measure) 74 <=129 mg/dL CBC Result Value Ref Range WBC 6.00 4.00 - 10.80 K/uL RBC 4.57 3.85 - 5.15 M/uL HGB 14.2 12.0 - 15.3 g/dL HCT 44.6 36.0 - 45.2 % MCV 97.6 81.5 - 97.5 fL MCH 31.1 27.0 - 34.0 pg MCHC 31.8 32.0 - 36.0 g/dL RDW 14.1 11.5 - 15.5 % PLT 254 140 - 400 K/uL MPV 11.7 6.6 - 11.1 fL DIFFERENTIAL, AUTOMATED Result Value Ref Range WBC 6.00 4.00 - 10.80 K/uL Neutrophils % 47.8 40.0 - 75.0 % Lymphocytes % 42.2 (H) 18.0 - 42.0 % Monocytes % 8.2 1.0 - 11.0 % Eosinophils % 1.3 0.0 - 6.0 % Basophils % 0.5 0.0 - 2.0 % Absolute Neutrophils 2.87 1.80 - 7.70 K/uL Absolute Lymphocytes 2.53 1.00 - 4.80 K/ul Absolute Monocytes 0.49 0.00 - 1.10 K/uL Absolute Eosinophils 0.08 0.00 - 0.70 K/uL Absolute Basophils 0.03 0.00 - 0.20 K/uL ALBUMIN / CREATININE RATIO, URINE Result Value Ref Range Albumin, Random Urine <1.20 mg/dL Creatinine, Random Urine 83 mg/dL Albumin / Creatinine Ratio, Urine <14 <30 mg/g Creat URINALYSIS, REFLEX TO MICROSCOPIC Result Value Ref Range Color, Urine Light Yellow Colorless, Light Yellow, Yellow, Dark Yellow Clarity, Urine Clear Clear Glucose, Urine Negative Negative mg/dL Bilirubin, Urine Negative Negative Ketone, Urine Negative Negative mg/dL Specific [place], Urine 1.022 1.003 - 1.030 Blood, Urine Negative Negative pH, Urine 7.0 5.0 - 7.5 Units Protein, Urine Negative Negative mg/dL Urobilinogen, Urine Normal Normal mg/dL Nitrite, Urine Negative Negative Esterase, Urine Negative Negative Comment, Urine Patient Active Problem List Diagnosis Code Severe obesity (BMI 35.0-39.9) with comorbidity ([facility]) E66.01 History of colonic polyps Z86.010 Gastroesophageal reflux disease without esophagitis K21.9 Encounter for screening mammogram for breast cancer Z12.31 Pap smear for cervical cancer screening Z12.4 Family history of diabetes mellitus Z83.3 Deviated nasal septum J34.2 Snoring R06.83 History of tobacco use Z87.891 Arthritis of knee, right M17.11 Type 2 diabetes mellitus with hemoglobin A1c goal of less than 7.0% ([facility]) E11.9 Mixed dyslipidemia E78.2 Fatty liver K76.0 Mixed incontinence urge and stress N39.46 Mixed rhinitis J31.0 Allergic rhinitis due to dust mite J30.89 Nasal valve collapse M95.0 PAIGE on CPAP G47.33 Screening for osteoporosis Z13.820 Current Outpatient Medications Medication Sig Dispense Refill aspirin enteric coated 81 MG TBEC Take 1 Tab by mouth daily. 100 Tab 3 Atorvastatin Calcium 40 MG Oral Tablet (Lipitor) Take 1 Tablet by mouth in the morning. 90 Tablet 3 Azelastine HCl 0.1 % Nasal Solution (Astelin) USE 2 SPRAYS IN EACH NOSTRIL TWICE A DAY 90 mL 3 Blood Glucose Monitoring Suppl ([employer] SYSTEM) W/DEVICE KIT Use up to 3 times a day as directed--E11.9 1 Kit 0 CPAP every night at bedtime . Denosumab 60 MG/ML Subcutaneous Solution Prefilled Syringe (ProlPikhub) Inject 60 mg under the skin once. --- started by [facility] provider 04/29/22 1 Each 0 diphenhydrAMINE (BENADRYL) 25 MG Capsule Use 1 or 2 tabs as needed at bedtime for worsening nasal allergy symptoms 50 Cap 1 Dulaglutide 0.75 MG/0.5ML Subcutaneous Solution Pen-injector ([employer]) Inject 0.75 mg under the skin once a week. 6 mL 0 Esomeprazole Magnesium 20 MG Oral Capsule Delayed Release Take 1 Capsule by mouth in the morning. 1hour before the first meal of the day. 90 Capsule 3 Fluticasone Propionate 50 MCG/ACT Nasal Suspension (Flonase) Administer 1 Gillette into each nostril in the morning and 1 Gillette before bedtime. 48 mL 3 Glucose Blood (ONETOUCH ULTRA BLUE) STRP Use up to 3 times a day as directed--E11.9 100 Strip 11 Ibuprofen 600 MG Oral Tablet (Motrin) Take 1 Tablet by mouth every 8 hours as needed (Pain). with food for 1 week then as needed--use for pain and swelling knee 30 Tab 1 Ketotifen Fumarate 0.025 % Ophthalmic Solution (Zaditor) Instill 1 Drop into both eyes as needed (as needed for dry eyes). 5 mL 0 Lisinopril 2.5 MG Oral Tablet (Prinivil) Take 1 Tablet by mouth in the morning. 90 Tablet 3 Magnesium Oxide 400 (241.3 Mg) MG Oral Tablet Take 400 mg by mouth every other day. -st 06/13/2020-dec 09/04 1 Tab 0 MEDICAL INSTRUCTIONS Patient has sleep apnea and is on CPAP machine at night. 1 Each 1 metFORMIN HCl ER 500 MG Oral Tablet Extended Release 24 Hour (Glucophage XR) Take 2 Tablets by mouth in the morning and 2 Tablets before bedtime. 360 Tablet 3 MULTI-DAY VITAMINS PO TABS once a day 0 ONETOUCH ULTRASOFT LANCETS MISC Use up to 3 times a day as directed--E11.9 1 Box Dosing Unit 11 oxyBUTYnin Chloride 5 MG Oral Tablet (Ditropan) Take 0.5 Tablets by mouth in the morning. -pt dec in 12/07 as felt not emptying. Saline Nasal [place] 0.65 % Nasal Solution Administer 1 [place] into nostril as needed for Congestion. SUMAtriptan Succinate 100 MG Oral Tablet TAKE 1 TABLET ONCE FOR 1 DOSE AT START OF MIGRAINE, MAY REPEAT IN 2 HOURS MAX 2 TABLETS PER 24 HOURS (rare use)--has med at home, last RX 06/05 with 2 rf Vitamin D3 50 MCG (2000 UT) Oral Capsule Take 1 Capsule by mouth in the morning. No current facility-administered medications for this visit. Past Medical History: Diagnosis Date Abnormal transaminases 01/02/2016 Allergic rhinitis due to other allergen Arthritis of knee, right 12/15/2015 Medial >lat based on exam Deviated nasal septum 12/15/2015 Christina miranda--consider SRP if int-await allergy+sleep med eval Fatty liver 01/03/2016 Gastroesophageal reflux disease without esophagitis 11/15/201511/30--nexium otc x 1 yr, Us RUQ--neg ex fatty liver. Migraine variant Mixed dyslipidemia 01/02/2016 Mixed incontinence urge and stress 02/09/2016 St oxy 12/30(+ newly diagDM) Obesity, Class II, BMI 35.0-39.9, with comorbidity (see actual BMI) 08/28/2009 Personal history of colonic polyps 02/23/2013 02/22/13: 8 mm adenoma of sigmoid colon Sleep apnea, obstructive Snoring 12/15/2015 Type 2 diabetes mellitus with hemoglobin A1c goal of less than 7.0% ([facility]) 01/02/2016 Past Surgical History: Procedure Laterality Date BIMALLEOLAR ANKLE FX W/ FIXATION Left 06/06/2017 OPEN TREATMENT BIMALLEOLAR ANKLE FRACTURE performed by Glenys Rogel DPM at OR [facility] COLONOSCOPY, DIAGNOSTIC (RECTUM) 02/22/2013 COLONOSCOPY FLEXIBLE PROXIMAL DIAGNOSTIC performed by Aleks Jhaveri MD at OR [facility] COLONOSCOPY, DIAGNOSTIC (RECTUM) 04/30/2018 adenomatous & hyperplastic polyps, diverticulosis, repeat 3 yrs/COLONOSCOPY FLEXIBLE PROXIMAL DIAGNOSTIC performed by Aleks Jhaveri MD at ENDOSCOPY [facility] COLONOSCOPY, DIAGNOSTIC (RECTUM) 06/07/2021 diverticulosis, repeat 5 yrs / COLONOSCOPY FLEXIBLE PROXIMAL DIAGNOSTIC performed by Aleks Jhaveri MD at ENDOSCOPY [facility] MAMMOGRAM - BILATERAL 05/18/2004 birad code 2 MAMMOGRAM - BILATERAL 12/13/2005 birad 2 MAMMOGRAM SCREENING BILATERAL 01/19/2010 birad 2, yearly recommended MAMMOGRAM SCREENING-BILATERAL 12/19/2006 birad 2 MAMMOGRAM SCREENING-BILATERAL 12/25/2007 birad code 2, yearly exams appropriate 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 -- REMOVE TONSILS & ADENOIDS, UNDER 12 Tonsillectomy/Adenoids,<12 Y/O Review of patient's allergies indicates: Allergen Reactions Mites Environmental [Pollen] Rhinitis Family History Problem Relation Age of Onset Diabetes Father Other (Other) Mother scleroderma, at 65 Other (PR) Father 80 at 86 Stroke Father 80 Other (kidney stones; obesity) Brother Allergies Other nephew - cat allergy Social History Tobacco Use Smoking status: Former Current packs/day: 0.00 Average packs/day: 1 pack/day for 20.0 years (20.0 ttl pk-yrs) Types: Cigarettes Start date: 03/17/1977 Quit date: 03/17/1997 Years since quittin.3 Smokeless tobacco: Never Tobacco comments: no passive smoke Vaping Use Vaping Use: Never used Substance Use Topics Alcohol use: Yes Alcohol/week: 3.3 standard drinks of alcohol Types: 2 12 oz of beer, 2 5 oz of wine per week Comment: occ Drug use: No OBJECTIVE: BP 110/80 | Pulse 60 | Temp 36.6 C (97.8 F) | Resp 16 | Wt 103.4 kg (228 lb) | LMP 01/22/2004 |BMI 36.80 kg/m | BSA 2.19 m PHYSICAL EXAM: General: alert, healthy, no distress, well nourished and well developed Head: Normocephalic, atraumatic Eye Exam: PERRLA, EOMI, Conjunctiva are pink and non-injected, sclera clear Ears: External ears normal, Canal clear, Tm normal left, Rt exc cerumen Nose: DNS to Rt, ,no mucosal erythema, +left mucosal edema Oropharynx: no exudate and no erythema/pnd, mm dry Neck: supple, no bruits, no JVD, thyroid normal size, non-tender, without nodularity Lymph: No palpable lymphadenopathy. Heart: Regular rhythm and rate, no murmurs and no gallops Lungs: lungs clear to auscultation Neuro Exam: alert & oriented x 3 with fluent speech, no focal motor/sensory deficits, gait normal Skin: skin color, texture, turgor are normal, no rashes Ext-rt shoulder--slow but full rom Left wrist -mild swelling, sl dec ROM -left knee--FROM, RT knee-looks bigger crepitus lat knee Back--mild tenderness lower lumbar region, neg slr narcisa Skin--flat lesion rt Cheek, SK on torso ASSESSMENT/PLAN: Type 2 diabetes mellitus with hemoglobin A1c goal of less than 7.0% ([facility]) (Primary) - HEMOGLOBIN A1C, POINT OF CARE - HEMOGLOBIN A1C; Future; Expected date: 07/22/2023 - Dulaglutide 1.5 MG/0.5ML Subcutaneous Solution Pen-injector (Trulicity); Inject 1.5 mg under theskin once a week. Inc 07/22/2023 (use 2 x 0.75 mg/0.5 ml till done and then start new RX 1.5 mg/0.5 ml inj) Severe obesity (BMI 35.0-39.9) with comorbidity (HCC) - Dulaglutide 1.5 MG/0.5ML Subcutaneous Solution Pen-injector (Trulicity); Inject 1.5 mg under the skin once a week. Inc 07/22/2023 (use 2 x 0.75 mg/0.5 ml till done and then start new RX 1.5 mg/0.5 mlinj) Fatty liver - Dulaglutide 1.5 MG/0.5ML Subcutaneous Solution Pen-injector (Trulicity); Inject 1.5 mg under the skin once a week. Inc 07/22/2023 (use 2 x 0.75 mg/0.5 ml till done and then start new RX 1.5 mg/0.5 mlinj) - POC A1c 5.4%, ch in lab to r/o lab error as wt loss only 8 lbs, no sx hypoglycemia FBS 110-120 minimal weight loss, tolerating Trulicity 0.75 mg dose Inc trulicity to help wt loss also call if any s/e Deviated nasal septum Mixed rhinitis Allergic rhinitis due to dust mite PAIGE on CPAP Excessive cerumen in ear canal, right --ct Flonase to 1spray 2/d or do 2 sprays at night, Atrovent was not effective, continue Astelin twice daily, nasal saline spray every 1-2 hours during the day as needed and definitely at bedtime, isusing netti pot 2/wk. -if sx worsen to let trade economist know for consideration of immunotherapy for dust mite allergy Follow Up: Return in about 3 months (around 10/22/2023), or if symptoms worsen or fail to improve, for Return with Physician, Fasting Labs 2-5 Days Before Next Visit. | For: Return with Physician, Fasting Labs 2-5 Days Before Next Visit Gisela Hedrick MD 04/22/2023 documented in this encounter Nursing Notes * Marley Alexander LPN - 07/22/2023 9:40 AM EDT The patient has been properly identified by confirmation of name and date of . Chief Complaint Patient presents with Follow Up 3 month follow up documented in this encounter Plan of Treatment Upcoming Encounters Date Type Department Care Team (Late st Contact Info) Description 08/18/2023 3:00 PM EDT Imaging Radiology, [address] [place] [address] 10/23/2023 8:00 AM EDT Nurse Only Ancillary [facility] [place] [address] [facility] [place] [address] Nurse, Int Med [address] [place] [address] 11/04/2023 8:20 AM EDT Office Visit General Internal Medicine [facility] [place] [address] [place] [address] Gisela Hedrick MD [address] [place] [address] [place] [address] 03/15/2024 10:00 AM EST Office Visit Sleep Disorders Ctr [facility] [address] [place] [phone] Tash Jacobo DO [address] [place] [address] 04/30/2024 9:30 AM EST Office Visit Allergy/Immunology [facility] [place] [address] [place] [address] Ambrocio Alexis MD 200 [facility] [place] [address] Scheduled Orders Name Type Priority Associated Diagnoses Orde r Schedule HEMOGLOBIN A1C Lab Routine Type 2 diabetes mellitus with hemoglobin A1c goal of less than 7.0% (HCC) Expected: 07/22/2023 (Approximate), Expires: 07/21/2024 Scheduled Procedures Name Priority Associated Diagnoses Date/Ti me COLONOSCOPY FLEXIBLE PROXIMA L DIAGNOSTIC Recall History of colonic polyps Health Maintenance Due Date Last Done Comments Cologuard 11/08/1999 Fecal Occult Blood Test 11/08/1999 07/12/1997 Sigmoidoscopy 11/08/1999 Depression Screening 10/09/2023 10/08/2022, 12/14/19 15 Diabetic Foot Exam 10/09/2023 10/08/2022, 0 10/02/2021, 09/11/2020, Additional history exists Hepatitis B (3 of 3 - 19+ 3-dose series) 10/21/2023 05/21/2023, 04/22/2023 Diabetic Eye Exam 01/16/2024 01/15/2023, , 01/24/2021, Additional history exists HbA1c 01/22/2024 07/22/2023, 03/18, 09/30/2022, Additional history exists Mammogram 03/28/2024 03/28/2023, 0106/2022, 03/20/2022, Additional history exists Albumin/Creatinine Ratio 04/09/2024 024, 03/29/2022, 09/10/2021, Additional history exists B-12 04/09/2024 04/09/2023, 09/14, 09/10/2021, Additional history exists GFR 04/09/2024 04/09/2023, 09/14, 03/26/2022, Additional history exists Colonoscopy 06/07/2026 06/07/2021, 05/16, 04/30/2018, Additional history exists Colorectal Cancer Screening 06/07/2026 DXA Scan 03/20/2027 03/20/2020, 03/20/2020 Lipid Panel 04/09/2028 04/09/2023, 03/18, 09/30/2022, Additional history exists DTaP,Tdap,and Td Vaccines (3 - Td or Tdap) 03/20/2031 03/20/2021, 11/30/2010, 02/10/2004 Zoster Vaccines Completed 01/25/2019, 11/15, 12/23/2014 RETIRED - COLONOSCOPY-EVERY 5 YRS AGES 18-100 Discontinued 06/07/2021, 06/07/2021, 04/30/2018, [...] this encounter Medical Devices Implanted Type Area Meat Grader Device Identifier Shelf Expiration Date Model / Serial / Lot 03/19 Tubular Plates 83 Length 7 Holes Implanted:Qty: 1 on 06/06/2017 by Glenys Rogel DPM at OR [facility] Left: Ankle NIKOLAY [id number] / / 3.5mm Locking Screw 12 Mm Length Implanted:Qty: 1 on 06/06/2017 by Glenys Rogel DPM at OR [facility] Left: Ankle NIKOLAY [id number] / / 3.5mm Locking Screw 14mm Implanted:Qty: 2 on 06/06/2017 by Glenys Rogel DPM at OR [facility] Left: Ankle NIKOLAY [id number] / / 3.5mm Locking Screw 50mm Implanted:Qty: 1 on 06/06/2017 by Glenys Rogel DPM at OR [facility] Left: Ankle NIKOLAY [id number] / / 3.5 Non Locking Screw 12mm Implanted:Qty: 1 on 06/06/2017 by Glenys Rogel DPM at OR [facility] Left: Ankle NIKOLAY [id number] / / documented as of this encounter Procedures Procedure Name Priority Date/Time Associated Diagnosis Comments HEMOGLOBIN A1C, POINT OF CARE Routine 07/22/2023 9:16 AM EDT Type 2 diabetes mellitus with hemoglobin A1c goal of less than 7.0% (HCC) documented in this encounter Results * HEMOGLOBIN A1C, POINT OF CARE (07/22/2023 9:16 AM EDT) Hemoglobin A1c 5.4 4.0 - 5.6 % 07/22/2023 10:13 AM EDT [facility] 56-02 Blood 07/22/2023 9:16 AM EDT 07/22/2023 10:13 AM EDT Gisela Hedrick MD LAB POINT OF CARE TE ST DOCKED DEVICE UNSOLICITED RESULTS [facility] 56- 200 [place] [address] documented in this encounter Visit Diagnoses Diagnosis Type 2 diabetes mellitus with hemoglobin A1c goal of less than 7.0% (HCC)- Primary Severe obesity (BMI 35.0-39.9) with comorbidity (HCC) Morbid obesity Deviated nasal septum Mixed rhinitis Chronic rhinitis Allergic rhinitis due to dust mite PAIGE on CPAP Obstructive sleep apnea (adult) (pediatric) Fatty liver Other chronic nonalcoholic liver disease Excessive cerumen in ear canal, right documented in this encounter Care Teams High Pressure Kettle Operator Relationship Specialty Start Date End Date [facility] [address] P[facility] - General Internal Medicine 03/04/22 documented as of this encounter
--- OUTSIDE RECORDS SUMMARY | 2023-07-23 20:09 | External Medical Summary | Summary of Care ---
Author Name Unknown Organization [facility] Address [address] [place] [address] Phone [phone] Care Team Providers Care Chemical Laboratory Assistant Name Role Phone Gisela Hedrick MD Primary Care Provider [phone] Encounter Details Date Type Department Care Team (Late st Contact Info) Description 05/07/2023 Orders Only Radiology, [facility] [address] [place], [place] [id number] Requisition, External Radiology [address] [place] [address] Age-related osteoporosis without current pathological fracture* Allergies Active Allergy Reactions Criticality Noted Date Comments Pollen Low 06/21/2016 Rhinitis Mites 06/21/2016 documented as of this encounter (statuses as of 05/07/2023) Medications Medication Sig Dispensed Refills Start Date End Date Status MULTI-DAY VITAMINS PO TABS once a day 0 12/20/2005 Active aspirin enteric coated 81 MG TBECIndications:Type 2 diabetes mellitus with hemoglobin A1c goal of less than 7.0% ([facility]) Take 1 Tab by mouth daily. 100 Tab 3 01/03/2016 Active Glucose Blood (ONETOUCH ULTRA BLUE) STRPIndications:Type 2 diabetes mellitus with hemoglobin A1c goal of less than 7.0% (HCC) Use up to 3 times a day as directed--E11.9 100 Strip 11 01/03/2016 Active Blood Glucose Monitoring Suppl (Virsec SystemsTOUCH ULTRA SYSTEM) W/DEVICE KITIndications:Type 2 diabetes mellitus with hemoglobin A1c goal of less than 7.0% (HCC) Use up to 3 times a day as directed--E11.9 1 Kit 0 01/03/2016 Active ONETOUCH ULTRASOFT LANCETS MISCIndications:Type 2 diabetes mellitus with hemoglobin A1c goal of less than 7.0% (HCC) Use up to 3 times a day as directed--E11.9 1 Box Dosing Unit 11 01/03/2016 Active Saline Nasal [place] 0.65 % Nasal Solution Administer 1 [place] into nostril as needed for Congestion. 0 [...] 50 MCG/ACT Nasal Suspension (Flonase) Administer 1 [place] into each nostril in the morning and 1 [place] before bedtime. 48 mL 3 05/22/2022 Active [...] the day. 90 Capsule 3 02/27/2023 Active Ipratropium [place] 0.03 % Nasal Solution (Atrovent)Indication s:PAIGE on CPAP,Mixed rhinitis,Nasal valve collapse Administer 2 Sprays into nostril every 8 hours as needed for Rhinitis. 90 mL 0 02/27/2023 Active Lisinopril 2.5 MG Oral Tablet [...] 06/05 with 2 rf 0 04/22/2023 Active Dulaglutide 0.75 MG/0.5ML Subcutaneous Solution Pen-injector (Trulicity)Indicatio ns:Type 2 diabetes mellitus with hemoglobin A1c goal of less than 7.0% (HCC),Severe obesity (BMI 35.0-39.9) with comorbidity (HCC) Inject 0.75 mg under the skin once a week. 6 mL 0 04/22/2023 Active oxyBUTYnin Chloride 5 MG Oral Tablet (Ditropan)Indication s:Mixed incontinence urge and stress Take 0.5 Tablets by mouth in the morning. -pt dec in 12/07 as felt not emptying. 0 04/22/2023 Active documented as of this encounter (statuses as of 05/07/2023) Active Problems Problem Noted Date Diagnosed Date [...] as of this encounter (statuses as of 05/07/2023) Resolved Problems Problem Noted Date Diagnosed Date [...] as of this encounter (statuses as of 05/07/2023) Immunizations Name Administration Dates Next Due COVID-19 mRNA, LNP-s, No Pre serve, 2-Dose Series (Moderna) 06/19/2020,05/22/2020 COVID-19, MRNA-LNP, 23-24, P F, 30 MCG/0.3 mL, 12 YRS AND ABOVE, IM (PFIZER-Comirnaty) 12/20/2022 COVID-19, mRNA, LNP-s, PF, B ooster, 100mcg/0.5mg (Moderna) 01/30/2021 Covid-19, Mrna, Lnp-s, Pf, B ivalent, 30 Mcg, IM, 12 yrs and above (Pfizer) 01/31/2022 Hepatitis B, 20+ yrs 04/22/2023 Pneumococcal Conjugate Vacc, 13 Valent (Prevnar) 04/05/2016 Pneumococcal Polysaccharide PPV23 (Pneumovax) 10/08/2022,09/09/2017 RSV Vac., Recomb, Adjuvant, PF,0.5 Ml (Arexvy) 01/09/2023 Seasonal Influenza Virus Vac cine, Unspecified Formulation [...] on file documented as of this encounter Plan of Treatment Upcoming Encounters Date Type Department Care Team (Late st Contact Info) Description 05/21/2023 10:00 AM EST Nurse Only Ancillary [facility] 200 [facility] [place] [address] Nurse, Int Med [address] [place] [address] 07/22/2023 9:20 AM EDT Office Visit General Internal Medicine [facility] [address] [facility] [place] [address] Gisela Hedrick MD [address] [place] [address] [facility] [place] [address] 08/18/2023 3:00 PM EDT Imaging Radiology, [address] [place] [address] 03/15/2024 10:00 AM EST Office Visit Sleep Disorders Ctr [facility] [address] [place] [phone] Tash Jacobo, [address] [facility] [place] [address] 04/30/2024 9:30 AM EST Office Visit Allergy/Immunology [facility] [address] [place] [address] Ambrocio Alexis MD [address] [place] [address] [place] [address] Scheduled Orders Name Type Priority Associated Diagnoses Orde r Schedule DEXA SCAN/BONE MINERAL AXIAL Medical Imaging Routine Age-related osteoporosis without current pathological fracture Ordered: 05/07/2023 Scheduled Procedures Name Priority Associated Diagnoses Date/Ti me COLONOSCOPY FLEXIBLE PROXIMA L DIAGNOSTIC Recall History of colonic polyps Health Maintenance Due Date Last Done Comments Hepatitis B (2 of 3 - 19+ 3-dose series) 05/20/2023 04/22/2023 HbA1c 10/08/2023 04/09/2023, 09/14, 03/26/2022, Additional history exists Depression Screening 10/09/2023 10/08/2022, 12/14/19 15 Diabetic Foot Exam 10/09/2023 10/08/2022, 0 10/02/2021, 09/11/2020, Additional history exists Diabetic Eye Exam 01/16/2024 01/15/2023, , 01/24/2021, Additional history exists Mammogram 03/28/2024 03/28/2023, 06/2022, 03/20/2022, Additional history exists Albumin/Creatinine Ratio 04/09/2024 [...] this encounter Medical Devices Implanted Type Area Rehab Trainer Device Identifier Shelf Expiration Date Model / Serial / Lot 03/19 Tubular Plates 83 Length 7 Holes Implanted:Qty: 1 on 06/06/2017 by Glenys Rogel DPM at OR [facility] Left: Ankle NIKOLAY [id number] / / 3.5mm Locking Screw 12 Mm Length Implanted:Qty: 1 on 06/06/2017 by Glenys Rogel DPM at OR [facility] Left: Ankle NIKOLAY [id number] / / 3.5mm Locking Screw 14mm Implanted:Qty: 2 on 06/06/2017 by Glenys Rogel DPM at OR [facility] Left: Ankle NIKOLAY [id number] / / 3.5mm Locking Screw 50mm Implanted:Qty: 1 on 06/06/2017 by Glenys Rogel DPM at OR [facility] Left: Ankle NIKOLAY [id number] / / 3.5 Non Locking Screw 12mm Implanted:Qty: 1 on 06/06/2017 by Glenys Rogel DPM at OR [facility] Left: Ankle NIKOLAY [id number] / / documented as of this encounter Visit Diagnoses Diagnosis Age-related osteoporosis without current pathological fracture- Primary Senile osteoporosis documented in this encounter Care Teams Chemical Laboratory Assistant Relationship Specialty Start Date End Date Gisela Hedrick MD [address] [place] [address], [place] [address] PCP - General Internal Medicine 03/04/22 documented as of this encounter
--- OUTSIDE RECORDS SUMMARY | 2023-07-23 20:09 | External Medical Summary ---
Author Name Unknown Address Unknown Organization K09:[facility] [place] [address] Laboratory Report Ordering Provider Test Date Status TABITHA GODOY 07/22/2023 09:16:42 Final Observation Date Value Abnormality Reference (Units ) Status HbA1C 07/22/2023 09:16:42 5.4 4.0-5.6 (% ) Final Performing Location [facility] [place] [address]
--- OUTSIDE RECORDS SUMMARY | 2023-07-23 20:09 | External Medical Summary | Summary of Care ---
Author Name Unknown Organization [facility] Address [address] [place] [address] Phone [phone] Care Team Providers Care Machinery Dismantler Name Role Phone Gisela Hedrick MD Primary Care Provider [phone] Encounter Details Date Type Department Care Team (Late st Contact Info) Description 05/21/2023 10:00 AM EST Nurse Only Ancillary [facility] [address] [place] [address] Nurse, Int Med [address] [place] [address] Allergies Active Allergy Reactions Criticality Noted Date Comments Pollen Low 06/21/2016 Rhinitis Mites 06/21/2016 documented as of this encounter (statuses as of 05/21/2023) Medications Medication Sig Dispensed Refills Start Date End Date Status MULTI-DAY VITAMINS PO TABS once a day 0 12/20/2005 Active aspirin enteric coated 81 MG TBECIndications:Type 2 diabetes mellitus with hemoglobin A1c goal of less than 7.0% ([facility]) Take 1 Tab by mouth daily. 100 Tab 3 01/03/2016 Active Glucose Blood (ONETOUCH ULTRA BLUE) STRPIndications:Type 2 diabetes mellitus with hemoglobin A1c goal of less than 7.0% (HCC) Use up to 3 times a day as directed--E11.9 100 Strip 11 01/03/2016 Active Blood Glucose Monitoring Suppl (ONETOUCH ULTRA SYSTEM) W/DEVICE KITIndications:Type 2 diabetes mellitus [...] Dosing Unit 11 01/03/2016 Active Saline Nasal [place] 0.65 % Nasal Solution Administer 1 [place] into nostril as needed for Congestion. 0 [...] 50 MCG/ACT Nasal Suspension (Flonase) Administer 1 [place] into each nostril in the morning and 1 [place] before bedtime. 48 mL 3 05/22/2022 Active [...] day. 90 Capsule 3 02/27/2023 Active Ipratropium [place] 0.03 % Nasal Solution (Atrovent)Indication s:PAIGE on [...] as of this encounter (statuses as of 05/21/2023) Active Problems Problem Noted Date Diagnosed Date [...] as of this encounter (statuses as of 05/21/2023) Resolved Problems Problem Noted Date Diagnosed Date [...] as of this encounter (statuses as of 05/21/2023) Immunizations Name Administration Dates Next Due COVID-19 [...] on file documented as of this encounter Nursing Notes * María Lau LPN - 05/21/2023 9:45 AM EST Pre-Administration Time Out Procedure Performed: Yes Patient Identified (Ask Name/Date of ): Yes Does the patient have a fever greater than 101 degrees today? No Patient allergic to latex? No Has the patient ever fainted after receiving an injection? No VFC Stock: No Immunization(s) verified: Yes, Immunization Name: Hep B, VIS Sheet(s) given: Yes Verified Side and Site: Yes Verified Shot(s) with Parent(s)/Patient: Yes documented in this encounter Plan of Treatment Upcoming Encounters Date Type Department Care Team (Late st Contact Info) Description 07/22/2023 9:20 AM EDT Office Visit [facility] [place] [address] [place] [address] Gisela Hedrick MD [address] [place] [address] 08/18/2023 3:00 PM EDT Imaging Radiology, [facility] [address] [facility] [place] [address] 10/23/2023 8:00 AM EDT Nurse Only [facility] [place] [address] [place] [address] Nurse, Int Med [address] [place] [address] 03/15/2024 10:00 AM EST Office Visit Sleep Disorders [facility]tr [facility] [address] [place] [phone] Tash Jacboo, [address] [place] [address] 04/30/2024 9:30 AM EST Office Visit Allergy/Immunology [facility] [address] [facility] [place] [place] [address] Ambrocio Alexis MD 200 [facility] [place] [address] Scheduled Procedures Name Priority Associated Diagnoses Date/Ti [...] this encounter Medical Devices Implanted Type Area Combat Systems Operator Mine Warfare Device Identifier Shelf Expiration Date Model / Serial / Lot 03/19 Tubular Plates 83 Length 7 Holes Implanted:Qty: 1 on 06/06/2017 by Glenys Rogel DPM at OR [facility] Left: Ankle NIKOLAY [id number] / / 3.5mm Locking Screw 12 Mm Length Implanted:Qty: 1 on 06/06/2017 by Glenys Rogel DPM at OR [facility] Left: Ankle NIKOLAY [id number] / / 3.5mm Locking Screw 14mm Implanted:Qty: 2 on 06/06/2017 by Glenys Rogel DPM at OR [facility] Left: Ankle NIKOLAY [id number] / / 3.5mm Locking Screw 50mm Implanted:Qty: 1 on 06/06/2017 by Glenys Rogel DPM at OR [facility] Left: Ankle NIKOLAY [id number] / / 3.5 Non Locking Screw 12mm Implanted:Qty: 1 on 06/06/2017 by Glenys Rogel DPM at OR [facility] Left: Ankle NIKOLAY [id number] / / documented as of this encounter Visit Diagnoses Diagnosis Need for hepatitis B vaccination- Primary Need for prophylactic vaccination and inoculation against viral hepatitis documented in this encounter Care Teams Machinery Dismantler Relationship Specialty Start Date End Date Gisela Hedrick MD [address] [place] [address] PCP - General Internal Medicine 03/04/22 documented as of this encounter
--- OUTSIDE RECORDS SUMMARY | 2023-07-23 20:10 | External Medical Summary ---
Author Name Unknown Address Unknown Organization K01:[facility] - [address] [place] [address] Laboratory Report Ordering Provider Test Date Status TABITHA GODOY 04/09/2023 07:10:34 Final Observation Date Value Abnormality Reference (Units ) Status LDL, (direct) 04/09/2023 07:10:34 74 <=129 (mg/dL) Final LDL Cholesterol Reference Ra nges (mg/dL):
<70 Target level for high risk ASCVD patient
<100 Optimal for general population
100-129 Near optimal for general population
130-159 Borderline high
160-189 High
>=190 Very high Performing Location [facility] - [address] [place] [address]
--- OUTSIDE RECORDS SUMMARY | 2023-07-23 20:10 | External Medical Summary | Summary of Care ---
Author Name Unknown Organization [facility] Address [address] [place] [address] Phone [phone] Care Team Providers Care Drapery Supervisor Name Role Phone Gisela Hedrick MD Primary Care Provider [phone] Reason for Visit * Reason Comments Allergy Return Encounter Details Date Type Department Care Team (Late st Contact Info) Description 05/01/2023 1:30 PM EST Office Visit Allergy/Immunology [facility] [address] [place] [address] Ambrocio Alexis MD [address] [place] [address] Mixed rhinitis*; Allergic rhinitis due to dust mite; Deviated nasal septum; Rhinitis, nonallergic Allergies Active Allergy Reactions Criticality Noted Date Comments Pollen Low 06/21/2016 Rhinitis Mites 06/21/2016 documented as of this encounter (statuses as of 05/01/2023) Medications Medication Sig Dispensed Refills Start Date End Date Status MULTI-DAY VITAMINS PO TABS once a day 0 12/20/2005 Active aspirin enteric coated 81 MG TBECIndications:Type 2 diabetes mellitus with hemoglobin A1c goal of less than 7.0% (HCC) Take 1 Tab by mouth daily. 100 Tab 3 01/03/2016 Active Glucose Blood (DynasilTOUCH ULTRA BLUE) STRPIndications:Type 2 diabetes mellitus with hemoglobin A1c goal of less than 7.0% (HCC) Use up to 3 times a day as directed--E11.9 100 Strip 11 01/03/2016 Active Blood Glucose Monitoring Suppl (EyeSpot ULTRA SYSTEM) W/DEVICE KITIndications:Type 2 diabetes mellitus [...] Dosing Unit 11 01/03/2016 Active Saline Nasal [place] 0.65 % Nasal Solution Administer 1 [place] into nostril as needed for Congestion. 0 [...] 50 MCG/ACT Nasal Suspension (Flonase) Administer 1 [place] into each nostril in the morning and 1 [place] before bedtime. 48 mL 3 05/22/2022 Active [...] day. 90 Capsule 3 02/27/2023 Active Ipratropium Cottonwood 0.03 % Nasal Solution (Atrovent)Indication s:PAIGE on [...] as of this encounter (statuses as of 05/01/2023) Active Problems Problem Noted Date Diagnosed Date [...] as of this encounter (statuses as of 05/01/2023) Resolved Problems Problem Noted Date Diagnosed Date [...] as of this encounter (statuses as of 05/01/2023) Immunizations Name Administration Dates Next Due COVID-19 mRNA, LNP-s, No Pre serve, 2-Dose Series (Moderna) 06/19/2020,05/22/2020 COVID-19, MRNA-LNP, 23-24, P F, 30 MCG/0.3 mL, 12 YRS AND ABOVE, IM (PFIZER-Comirnat) 12/20/2022 COVID-19, mRNA, LNP-s, PF, B ooster, [...] Date Smoking Tobacco: Former Cigarettes 1 20 Q uit: 03/17/1997 Smokeless Tobacco: Never Tobacco Cessation:Counseling Given: Not Answered Comments:no passive smoke Alcohol Use Standard Drinks/Week [...] Sign Reading Time Taken Comments Blood Pressure 120/90 05/01/2023 1:23 PM EST Pulse 82 05/01/2023 1:23 PM EST Temperature 36.3 C (97.4 F) 05/01/2023 1:23 PM ES T Respiratory Rate 16 05/01/2023 1:23 PM EST Oxygen Saturation - - Inhaled Oxygen Concentration - - Weight 107.3 kg (236 lb 9.6 oz) 05/01/2023 1:23 PM EST Height - - Body Mass Index 38.19 04/22/2023 9:25 AM EST documented in this encounter Patient Instructions * Patient Instructions* Ambrocio Alexis MD - 05/01/2023 1:25 PM EST Nonallergic Trigger Avoidance Measures: Do not smoke, no smoking allowed in house or vehicles; avoid wood, coal burning stoves , and kerosene heaters; avoid strong smelling perfumes and perfumed cosmetics; do not use incense, potpourri, or scented candles, air fresheners in the home; avoid chemicalodors and weather changes (abrupt changes in temperature and humidity). If unavoidable, use a HEPA air-cleaning device. Dust Mite Avoidance Measures: Essential: Encase mattress, pillow, box springs in allergen-impermeable covers; wash bedding weeklyin hot water(>130 degreesF); reduce indoor humidity to <50%; dust weekly and run HEPA type vacuum duct cleaner. Desirable: Remove carpets from bedroom and any laid on concrete; minimize upholstered furniture; use HEPA type air filtration in bedroom and family room (close air ducts); remove stuffed toys and collectibles from bedroom. documented in this encounter Progress Notes * Ambrocio Alexis MD - 05/01/2023 1:25 PM EST SUBJECTIVE: Prisca is a pleasant 67-year-old female who presents for follow-up of her chronic allergic rhinitis and nonallergic rhinitis. She reports that she is been doing fairly well. However she does report increased nasal congestion primarily on her left side since the month of November for unclear reasons. She has been compliant with her regimen of Astelin 2 sprays each nostril twice daily in additionto ipratropium nasal spray 1 spray to each nostril twice daily. She reports that she uses CPAP at nighttime and often times she will have to wake up in the middle of the night due to increased nasal congestion. She does occasionally use normal saline nasal spray as well. She no longer is on Flonase for unclear reasons. She reports no rhinorrhea nor postnasal drip. She reports no excessive sneezing. She denies any ocular symptoms such as itchy or teary eyes. She is not had any recent upper respiratory infections and has been healthy otherwise. She reports no history of asthma. She reports no shortness of breath, chronic cough, nor wheezing. There has been no history of hives, itch, nor rash. She denies any sinus nor ear infections like she used to get before. Patient Active Problem List Diagnosis Code History of colonic polyps Z86.010 Gastroesophageal reflux disease without esophagitis K21.9 Encounter for screening mammogram for breast cancer Z12.31 Pap smear for cervical cancer screening Z12.4 Family history of diabetes mellitus Z83.3 Deviated nasal septum J34.2 Snoring R06.83 History of tobacco use Z87.891 Arthritis of knee, right M17.11 Type 2 diabetes mellitus with hemoglobin A1c goal of less than 7.0% ([facility]) E11.9 Mixed dyslipidemia E78.2 Fatty liver K76.0 Mixed incontinence urge and stress N39.46 Mixed rhinitis J31.0 Allergic rhinitis due to dust mite J30.89 Nasal valve collapse M95.0 PAIGE on CPAP G47.33 Screening for osteoporosis Z13.820 Current Outpatient Medications Medication Sig Dispense Refill MULTI-DAY VITAMINS PO TABS once a day 0 aspirin enteric coated 81 MG TBEC Take 1 Tab by mouth daily. 100 Tab 3 Glucose Blood (ElderscanUCH ULTRA BLUE) STRP Use up to 3 times a day as directed--E11.9 100 Strip 11 Blood Glucose Monitoring Suppl (EyeSpot ULTRA SYSTEM) W/DEVICE KIT Use up to 3 times a day as directed--E11.9 1 Kit 0 Saline Nasal Miami 0.65 % Nasal Solution Administer 1 [place] into nostril as needed for Congestion. diphenhydrAMINE (BENADRYL) 25 MG Capsule Use 1 or 2 tabs as needed at bedtime for worsening nasal allergy symptoms 50 Cap 1 Magnesium Oxide 400 (241.3 Mg) MG Oral Tablet Take 400 mg by mouth every other day. -06/13/2020-feb 19 1 Tab 0 Ibuprofen 600 MG Oral Tablet (Motrin) Take 1 Tablet by mouth every 8 hours as needed (Pain). with food for 1 week then as needed--use for pain and swelling knee 30 Tab 1 CPAP every night at bedtime . Ketotifen Fumarate 0.025 % Ophthalmic Solution (Zaditor) Instill 1 Drop into both eyes as needed (as needed for dry eyes). 5 mL 0 Vitamin D3 50 MCG (2000 UT) Oral Capsule Take 1 Capsule by mouth in the morning. Fluticasone Propionate 50 MCG/ACT Nasal Suspension (Flonase) Administer 1 [place] into each nostril in the morning and 1 [place] before bedtime. 48 mL 3 Denosumab 60 MG/ML Subcutaneous Solution Prefilled Syringe (Prolia) Inject 60 mg under the skin once. --- started by [facility] provider 04/29/22 1 Each 0 Atorvastatin Calcium 40 MG Oral Tablet (Lipitor) Take 1 Tablet by mouth in the morning. 90 Tablet 3 Azelastine HCl 0.1 % Nasal Solution (Astelin) USE 2 SPRAYS IN EACH NOSTRIL TWICE A DAY 90 mL 3 Esomeprazole Magnesium 20 MG Oral Capsule Delayed Release Take 1 Capsule by mouth in the morning. 1hour before the first meal of the day. 90 Capsule 3 Ipratropium Cottonwood 0.03 % Nasal Solution (Atrovent) Administer 2 Sprays into nostril every 8 hoursas needed for Rhinitis. 90 mL 0 Lisinopril 2.5 MG Oral Tablet (Prinivil) Take 1 Tablet by mouth in the morning. 90 Tablet 3 metFORMIN HCl ER 500 MG Oral Tablet Extended Release 24 Hour (Glucophage XR) Take 2 Tablets by mouth in the morning and 2 Tablets before bedtime. 360 Tablet 3 SUMAtriptan Succinate 100 MG Oral Tablet TAKE 1 TABLET ONCE FOR 1 DOSE AT START OF MIGRAINE, MAY REPEAT IN 2 HOURS MAX 2 TABLETS PER 24 HOURS (rare use)--has med at home, last RX 06/05 with 2 rf Dulaglutide 0.75 MG/0.5ML Subcutaneous Solution Pen-injector (Trulicity) Inject 0.75 mg under the skin once a week. 6 mL 0 oxyBUTYnin Chloride 5 MG Oral Tablet (Ditropan) Take 0.5 Tablets by mouth in the morning. -pt dec in 12/07 as felt not emptying. ONETOUCH ULTRASOFT LANCETS MISC Use up to 3 times a day as directed--E11.9 1 Box Dosing Unit 11 MEDICAL INSTRUCTIONS Patient has sleep apnea and is on CPAP machine at night. 1 Each 1 No current facility-administered medications for this visit. Social History Social History Marital status: Occupational History [employer] Social History Main Topics Smoking status: Former Smoker Packs/day: 1.00 Years: 20.00 Types: Cigarettes Quit date: 03/17/1997 Smokeless tobacco: Never Used Comment: no passive smoke Alcohol use 2.0 oz/week 2 12 oz of beer, 2 5 oz of wine per week Comment: occ Social History Narrative Environment/Occupation/Activities of Daily Living: She lives in a multilevel house. There is gas forced air heat. Central air conditioning. Basement unfinished and dry with a dehumidifier. They do use scented materials in the home. Indoor pets include 4 cats. Bedroom is 3rd floor and carpeted. Sleeps on a mattress bed. 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 BP 120/90 | Pulse 82 | Temp 36.3 C (97.4 F) | Resp 16 | Wt 107.3 kg (236 lb 9.6 oz) | LMP 01/22/2004 | BMI 38.19 kg/m | BSA 2.24 m PHYSICAL EXAM: No Acute Distress: Conjunctiva: Normal TM's: Clear Nose: Pale mucosa, Mild inferior turbinate edema, no polyps, no mucopus, mild septum deviation Oropharynx: Mild erythema and cobblestoning, no lesions or exudates. Neck: No significant adenopathy Lungs: Clear to A&P, no wheezes Cor: RRR, no murmur Skin: No lesions atopic dermatitis; no urticaria, angioedema OBJECTIVE DATA: Allergy skin testing 05/17/16 revealed a significant positive reaction to dust mites. All other skin tests were negative in the face of adequate positive histamine controls. ASSESSMENT: ICD-10-CM 1. Mixed rhinitis J31.0 2. Allergic rhinitis due to dust mite J30.89 3. Deviated nasal septum J34.2 4. Rhinitis, nonallergic J31.0 PLAN: Avoidance measures regarding dust mites and nonallergic triggers were recommended and reviewed. We did review the various triggers of nonallergic rhinitis which includes drastic changes in the barometric pressure, drastic changes in temperature, and respiratory irritants which do include strong odors, perfumes, and smoke. From a pharmacotherapy standpoint, she may continue to take her Astelin 2 sprays each nostril twicedaily in addition to her ipratropium 1 spray to each nostril twice daily. For unclear reasons she discontinued her Flonase in the past. Hence we will add in Flonase 2 sprays each nostril daily. Proper technique of a nasal spray which shown to her today. Furthermore we will add in a normal saline sinus rinse to be used prior to the use of the nasal sprays for additional measures. She will continueto use her air purifier with a HEPA filter within her bedroom. She does have a deviated nasal septum. If she continues with problems despite aggressive treatment with medications, follow up with ENT regarding possible surgical options will be recommended. Allergy immunotherapy is a consideration for the dust mite component of her rhinitis especially if response to avoidance and medication therapies over time are not adequate. Thank you very much for allowing me to participate in the care of your patient. Please do not hesitate to contact our office should you have any questions or concerns overall. Ambrocio Alexis MD Allergy and Immunology [facility] (This note was completed using the dictation program Fluency Direct. As such, there may be misspellings, word substitutions, or other variations that should not change the essence of the clinical content of this encounter note.If there is need for further clarification, please direct questions to the provider listed above.) documented in this encounter Nursing Notes * Carmen Durbin LPN - 05/01/2023 1:22 PM EST The pt has been properly identified by confirmation of name and date of . Pt presents for allergy return. Pt c/o a lot of stuffiness. Pt reports L>R. documented in this encounter Plan of Treatment Upcoming Encounters Date Type Department Care Team (Late st Contact Info) Description 05/21/2023 10:00 AM EST Nurse Only Ancillary [address] [place] [id number] Nurse, Int Med [address] [place] [id number] 07/22/2023 9:20 AM EDT Office Visit General Internal Medicine [facility] [address] [facility] [place] [address] Gisela Hedrick MD [address] [place] [id number] 03/15/2024 10:00 AM EST Office Visit [facility] Disorders [facility] [address] [place] [phone] Tash Jacobo DO [address] [place] [address] Scheduled Procedures Name Priority Associated Diagnoses Date/Ti me COLONOSCOPY FLEXIBLE PROXIMA L DIAGNOSTIC Recall History of colonic polyps Health Maintenance Due Date Last Done Comments Hepatitis B (2 of 3 - Risk 3-dose series) 05/20/2023 04/22/2023 HbA1c 10/08/2023 04/09/2023, [...] this encounter Medical Devices Implanted Type Area Metal Storage Worker Device Identifier Shelf Expiration Date Model / Serial / Lot 3.5 Non Locking Screw 12mm Implanted:Qty: 1 on 06/06/2017 by Glenys Rogel DPM at OR [facility] Left: Ankle NIKOLAY [id number] / / documented as of this encounter Visit Diagnoses Diagnosis Mixed rhinitis- Primary Chronic rhinitis Allergic rhinitis due to dust mite Deviated nasal septum Rhinitis, nonallergic Chronic rhinitis documented in this encounter Care Teams Drapery Supervisor Relationship Specialty Start Date End Date Gisela Hedrick MD [address] [facility] [place] [address] PCP - General Internal Medicine 03/04/22 documented as of this encounter"
--- OUTSIDE RECORDS SUMMARY | 2023-07-23 20:10 | External Medical Summary ---
Author Name Unknown Address Unknown Organization K09:[facility] [place] [address] Laboratory Report Ordering Provider Test Date Status TABITHA GODOY 04/09/2023 07:10:34 Final Observation Date Value Abnormality Reference (Units ) Status BUN 04/09/2023 07:10:34 15 6-20 (mg/dL) Final Creatinine 04/09/2023 07:10:34 0.8 0.5-1.0 (mg/dL) Final Glomerular filtration rate/1.73 sq M.predicted [Volume Rate/Area] in Serum, Plasma or Blood by Creatinine-based formula (CKD-EPI) 04/09/2023 07:10:34 81 >=60 (mL/min) Final eGFR is calculated based on the CKD-EPI 2020 equation SODIUM 04/09/2023 07:10:34 140 135-146 (m mol/L) Final Potassium 04/09/2023 07:10:34 4.6 3.5-5.1 (m mol/L) Final Cl 04/09/2023 07:10:34 102 98-107 (mm ol/L) Final CO2 04/09/2023 07:10:34 26 22-32 (mmo l/L) Final Anion gap 04/09/2023 07:10:34 12 7-15 (mmol /L) Final Glucose 04/09/2023 07:10:34 152 Above high normal 70 -120 (mg/dL) Final Calcium 04/09/2023 07:10:34 9.6 8.4-10.2 ( mg/dL) Final Performing Location [facility] [place] [address]
--- OUTSIDE RECORDS SUMMARY | 2023-07-23 20:10 | External Medical Summary ---
Author Name Unknown Address Unknown Organization K09:[facility] [place] [address] Laboratory Report Ordering Provider Test Date Status TABITHA GODOY 04/09/2023 07:10:34 Final Observation Date Value Abnormality Reference (Units ) Status SYNC LEUKOCYTES IN BLOOD BY AUTOMATED COUNT 04/09/2023 07:10:34 6.00 4.00-10.80 (K/uL) Final Segs 04/09/2023 07:10:34 47.8 40.0-75.0 (%) Final Lymphs % 04/09/2023 07:10:34 42.2 Above high normal 18.0-42.0 (%) Final Monos 04/09/2023 07:10:34 8.2 1.0-11.0 (%) Final Eosinophils 04/09/2023 07:10:34 1.3 0.0-6.0 (%) Final Basos 04/09/2023 07:10:34 0.5 0.0-2.0 (%) Final Absolute Segs 04/09/2023 07:10:34 2.87 1.80-7.70 (K/uL) Final Lymphs, absolute 04/09/2023 07:10:34 2.53 1.00-4.80 (K/ul) Final Monos, Abs 04/09/2023 07:10:34 0.49 0.00-1.10 (K/uL) Final Eos, Abs 04/09/2023 07:10:34 0.08 0.00-0.70 (K/uL) Final Basos, Abs 04/09/2023 07:10:34 0.03 0.00-0.20 (K/uL) Final Performing Location [facility] [address] [place] [address]
--- OUTSIDE RECORDS SUMMARY | 2023-07-23 20:10 | External Medical Summary ---
Author Name Unknown Address Unknown Organization K01:[facility] - [address] [place] [address] Laboratory Report Ordering Provider Test Date Status TABITHA GODOY 04/09/2023 07:10:34 Final Observation Date Value Abnormality Reference (Units ) Status Vitamin B12 04/09/2023 07:10:34 906 804-7080 (pg/mL) Final Performing Location [facility] - [address] [place] [address]
--- OUTSIDE RECORDS SUMMARY | 2023-07-23 20:10 | External Medical Summary ---
Author Name Unknown Address Unknown Organization K01[facility] [place] [address] [place] [address] Laboratory Report Ordering Provider Test Date Status TABITHA GODOY 04/09/2023 07:13:25 Final Normal: <30 mg/g creatinine< br/>High: 30-300 mg/g creatinine
Very High: >300 mg/g creatinine
Nephrotic: >2200 mg/g creatinine Observation Date Value Abnormality Reference (Units ) Status Albumin, Urine 04/09/2023 07:13:25 <1.20 (mg/dL) Final Creatinine, Urine 04/09/2023 07:13:25 83 (mg/dL) Final Albumin/Creatinine [Mass Ratio] in Urine 04/09/2023 07:13:25 <14 <30 (mg/g Creat) Final Performing Location [facility] [place] [address] [place] [address]
--- OUTSIDE RECORDS SUMMARY | 2023-07-23 20:10 | External Medical Summary ---
Author Name Unknown Address Unknown Organization K01:[facility] - [address] [place] [address] Laboratory Report Ordering Provider Test Date Status TABITHA GODOY 04/09/2023 07:13:25 Final Observation Date Value Abnormality Reference (Units ) Status Color of Urine by Auto 04/09/2023 07:13:25 Light Yellow Colorless, Light Yellow, Yellow, Dark Yellow Final Clarity, Urine 04/09/2023 07:13:25 Clear Clear Final Glucose [Mass/volume] in Urine by Automated test strip 04/09/2023 07:13:25 Negative Negative (mg/dL) Final Bilirubin.total [Presence] in Urine by Automated test strip 04/09/2023 07:13:25 Negative Negative Final Ketones [Mass/volume] in Urine by Automated test strip 04/09/2023 07:13:25 Negative Negative (mg/dL) Final Specific gravity, Urine 04/09/2023 07:13:25 1.022 1.003-1.030 Final Hemoglobin [Presence] in Urine by Automated test strip 04/09/2023 07:13:25 Negative Negative Final pH, Urine 04/09/2023 07:13:25 7.0 5.0-7.5 (Units) Final Protein [Mass/volume] in Urine by Automated test strip 04/09/2023 07:13:25 Negative Negative (mg/dL) Final Urobilinogen [Mass/volume] in Urine by Automated test strip 04/09/2023 07:13:25 Normal Normal (mg/dL) Final Nitrite [Presence] in Urine by Automated test strip 04/09/2023 07:13:25 Negative Negative Final Leukocyte esterase [Presence] in Urine by Automated test strip 04/09/2023 07:13:25 Negative Negative Final Annotation Comment 04/09/2023 07:13:25 Final Screen negative - Microscopi c not performed. Performing Location [facility] - [address] [facility] [address]
--- OUTSIDE RECORDS SUMMARY | 2023-07-23 20:10 | External Medical Summary | Summary of Care ---
Author Name Unknown Organization [facility] Address [address] [place] [address] Phone [phone] Care Team Providers Care Insulation Cutter Name Role Phone Gisela Hedrick MD Primary Care Provider [phone] Reason for Visit * Reason Comments Physical-Exam The pt stated she is here for her annual physical and pelvic exam Encounter Details Date Type Department Care Team (Late st Contact Info) Description 04/22/2023 9:20 AM EST Office Visit General Internal Medicine [facility] [address] [place] [address] Gisela Hedrick MD [address] [place] [address] Need for hepatitis B vaccination*; Type 2 diabetes mellitus with hemoglobin A1c goal of less than 7.0% ([facility]); Mixed dyslipidemia; PAIGE on CPAP; Gastroesophageal reflux disease without esophagitis; Mixed incontinence urge and stress; Lumbar degenerative disc disease; Traumatic compression fracture of L4 lumbar vertebra with routine healing, subsequent encounter; Other closed fracture of fifth lumbar vertebra with routine healing, subsequent encounter; Osteopenia of left forearm; Screening for osteoporosis; Encounter for screening mammogram for breast cancer; Migraine without aura and without status migrainosus, not intractable; Severe obesity (BMI 35.0-39.9) with comorbidity (HCC); Deviated nasal septum; Nasal congestion; Mixed rhinitis; Allergic rhinitis due to dust mite Allergies Active Allergy Reactions Criticality Noted Date Comments Pollen Low 06/21/2016 Rhinitis Mites 06/21/2016 documented as of this encounter (statuses as of 04/22/2023) Medications Medication Sig Dispensed Refills Start Date End Date Status MULTI-DAY VITAMINS PO TABS once a day 0 6 Active aspirin enteric coated 81 MG TBECIndications:Ty pe 2 diabetes mellitus with hemoglobin A1c goal of less than 7.0% (HCC) Take 1 Tab by mouth daily. 100 Tab 3 6 Active Glucose Blood (Musical SneakersTOUCH ULTRA BLUE) STRPIndications:Ty pe 2 diabetes mellitus with hemoglobin A1c goal of less than 7.0% (HCC) Use up to 3 times a day as directed--E11. 9 100 Strip 11 6 Active Blood Glucose Monitoring Suppl (Musical SneakersTOUCH ULTRA SYSTEM) W/DEVICE KITIndications:Typ e 2 diabetes [...] Dosing Unit 11 6 Active Saline Nasal Lawrence 0.65 % Nasal Solution Administer 1 Lawrence into nostril as needed for Congestion. 0 [...] 50 MCG/ACT Nasal Suspension (Flonase) Administer 1 Lawrence into each nostril in the morning and 1 Lawrence before bedtime. 48 mL 3 3 Active [...] the day. 90 Capsule 3 3 Active Ipratropium [place] 0.03 % Nasal Solution (Atrovent)Indicati ons:PAIGE on CPAP,Mixed rhinitis,Nasal valve collapse Administer 2 Sprays into nostril every 8 hours as needed for Rhinitis. 90 mL 0 3 Active Lisinopril 2.5 MG Oral Tablet [...] 06/05 with 2 rf 0 4 Active Dulaglutide 0.75 MG/0.5ML Subcutaneous Solution Pen-injector (Trulicity)Indicat ions:Type 2 diabetes mellitus with hemoglobin A1c goal of less than 7.0% (HCC),Severe obesity (BMI 35.0-39.9) with comorbidity (HCC) Inject 0.75 mg under the skin once a week. 6 mL 0 4 Active oxyBUTYnin Chloride 5 MG Oral Tablet (Ditropan)Indicati ons:Mixed incontinence urge and stress Take 0.5 Tablets by mouth in the morning. -pt dec in 12/07 as felt not emptying. 0 4 Active Riboflavin 400 MG Oral CapsuleIndications :Migraine without aura and without status migrainosus, not intractable Take 1 Capsule by mouth every other day. -OTC-st 02/24/2020-dec 09/04 1 Cap 0 1 04/22/19 24 Discontinued oxyBUTYnin Chloride 5 MG Oral Tablet (Ditropan)Indicati ons:Mixed incontinence urge and stress Take 1 Tablet by mouth in the morning and 1 Tablet before bedtime. Inc 10/08/2022. 90 Tablet 3 3 04/22/19 24 Discontinued(Re fill) documented as of this encounter (statuses as of 04/22/2023) Active Problems Problem Noted Date Diagnosed Date [...] as of this encounter (statuses as of 04/22/2023) Resolved Problems Problem Noted Date Diagnosed Date Resolved Date Abnormal transaminases 01/02/2016 01/26 /2018 Severe obesity with body mas s index (BMI) of 35.0 to 39.9 with serious comorbidity 08/28/2009 Overview: ICD-10 update of inactive diagnosis ADVANCE DIRECTIVE INFORMATION 01/13/2007 12/15/2015 Overview: No, Advance Directive brochure given to patient at prior appointment. Perennial allergic rhinitis with seasonal variation 01/13/2004 05/17/2016 Overview: Daily nata, benadryl, nasacort documented as of this encounter (statuses as of 04/22/2023) Immunizations Name Administration Dates Next Due COVID-19 [...] Sign Reading Time Taken Comments Blood Pressure 120/70 04/22/2023 10:03 AM EST Pulse 89 04/22/2023 9:25 AM EST Temperature 36.5 C (97.7 F) 04/22/2023 9:25 AM ES T Respiratory Rate - - Oxygen Saturation 95% 04/22/2023 9:25 AM EST Inhaled Oxygen Concentration - - Weight 106.8 kg (235 lb 6.4 oz) 04/22/2023 9:25 AM EST Height 167.6 cm (5' 6") 04/22/2023 9:25 AM EST Body Mass Index 37.99 04/22/2023 9:25 AM EST documented in this encounter Progress Notes * Rolly River LPN - 04/22/2023 10:11 AM EST Pre-Administration Time Out Procedure Performed: [...] Site: Yes Verified Shot(s) with Parent(s)/Patient: Yes * Gisela Hedrick MD - 04/22/2023 9:29 AM EST SUBJECTIVE: Prisca Quinones is a 61 year old female. 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 [...] , A1c higher, willing to start trulicity Foot exam-nml 12/30,07/01; 09/01-has callus will see podiatry--09/11/2020>10/05>10/06 Eye exam- 07/30 Jamin---12/31, 01/01;01/02;01/03, 02/04>01/24/22--watching cataracts ou, no DR WARREN SANCHEZ neg 04/02;04/03, 04/04;09/03;09/04; 40 10/05?sec wt gain as a1c nml, 04/08;05/10 B12 improved with suppl st 09/01. Level 231-->1999-dec 3d/wk 09/11/2020>1128 10/05>1854 10/06--will dc and monitor>nml 05/10 Fatty liver on RUQ US 11/30 Ast/alt [...] SRP if int-await allergy+sleep med ruben Saw air conditioner installer helper--inc dose astelin 2s bid last wk as had inc nasal congestion, and in dec had left maxsinus pain(dental exam nml 04/04) Had fu 05/06, no sx 08/24/201904/08--using benadryl at hs most days--to DC sec risk fall, trial adding atrovent NS qid prn, f/u Malini 04/18/22 OSAS:diag 07/01 HST 06/28/16: AHI 10.9, <89% 5.6 mins 07/31-Start a cpap autotitrator with pressures of 5-15cwp with heated humidity- 08/31-CPAP 9 cwp --- (AHP). 05/23/20-was chg to 7-10 cwp --has nasal mask waking up with Headache 03/06-flonase at hs, saw air conditioner installer helper 05/08--rec astelin bid 10/05--had severe conj erythema --was todl sec to allergies by her gabo charles and to use zaditor, advisedto try dailyif [...] times some stress incontinence. Willing to increase doseof oxybutynin to 5 mg twice daily, if symptoms not improved with timed voiding and the medication changes to call for referral to uro plaster molder. Denies any prolapse, no vaginal discharge, no [...] OTC esomeprazole Had mammo neg 03/01 , [facility]-03/02-FG breast., same 03/03, 03/08/19-neg, benign Ca+>neg 03/09/20 [...] enthesopathy quad tendon;;prior h/o left 5th MT fra. Has callus lef foot--saw podiatry 01/02 who [...] aspect of the nail, she has tried rohq-vly-uvqdejm antibioticcream, Epsom salt soaks without much improvement. No redness at the site or discharge. No fever or chills. 04/08--seen 02/04/22 for LBP Rt >lt, no sciatica/bruising status post fall on outstretched hand and back at the [facility] 02/03/22; had radius fracture, which was casted, [...] to have pain.' MRI lumbar spine was ordered-fabián 03/07/22, but cx due to weather had [...] foraminal disc protrusion. --followed by Rheumatology at [facility] and states they were planning to order medication for treating osteoporosis and is awaiting approval, discussed media calcium nasal spray may be an option. Back pain persists with movement., will refer to pain clinic [place] [facility] [place] further eval. Will have nurse fax MRI report to pain clinic and to Complaint Investigations Officer GURMEET Smith at [facility]. 03/26/22--nml CMP, TSH,PTH, VD 37, phos 4.3 10/06---seeing a provider at [facility], was started on Prolia 04/29/2022, has not had a repeat bone density prior to starting medication. she has not been on any other off medications for osteoporosis. She has appointment with them in October and will discuss -end of July she injured her right shoulder when she for lung a heavy file on a table. Has been following up with [facility], is in physical therapy, also taking ibuprofen at least twice daily, shoulder range of motion has improved. 05/10-continues to have some discomfort in her left wrist was told she may have arthritis Appetite is good, no Fatigue/snoring No headache,URI symptoms, vision changes,neck swelling, chest pain, palpitations, shortness of breath, leg edema No nausea,vomiting or heartburn, constipation or diarrhea, blood in the stool or black stool, abdominal pain. No blood in the urine, no urinary problems. No night sweats, no unusual bleeding/bruising, no weight loss and no swollen nodes. No excessive thirst Or urination. No fatigue/xs dry skin. No rash, new/changing skin lesions. Denies feelings of depression or anxiety, sleeps good. Had donated blood in 2013. Immunizations are uptodate. Discussed hep b vaccine-willing Hemoglobin AIC Results: Lab Results Component Value Date/Time HEMOGLOBIN A1C - [facility] 7.4 (H) 04/09/2023 07:10 AM HEMOGLOBIN A1C - [facility] 6.4 (H) 09/30/2022 07:20 AM HEMOGLOBIN A1C - [facility] 6.3 (H) 03/26/2022 07:11 AM HEMOGLOBIN A1C - [facility] 7.6 (H) 02/18/2020 07:09 AM HEMOGLOBIN A1C - [facility] 7.3 (H) 08/20/2019 07:26 AM HEMOGLOBIN A1C - [facility] 6.9 (H) 11/20/2018 07:26 AM Hemoglobin Results: Lab Results Component Value Date/Time HGB - [facility] 14.2 04/09/2023 07:10 AM HGB - [facility] 14.2 03/12/2021 07:06 AM HGB - [facility] 13.8 05/22/2017 08:59 AM HGB - [facility] 14.6 12/29/2015 07:46 AM HGB - [facility] 15.0 (H) 06/09/2009 01:27 PM TSH Results: Lab Results Component Value Date/Time TSH - [facility] 3.01 03/26/2022 07:11 AM TSH - [facility] 2.28 12/29/2015 07:46 AM TSH - [facility] 3.51 02/11/2004 08:40 AM ALT Results: Lab Results Component Value Date/Time ALT - [facility] 04/09/2023 07:10 AM ALT - [facility] 03/26/2022 07:11 AM ALT - [facility] 16 [...] Negative Ketone, Urine Negative Negative mg/dL Specific [place], Urine 1.022 1.003 - 1.030 Blood, Urine Negative Negative pH, Urine 7.0 5.0 - 7.5 Units Protein, Urine Negative Negative mg/dL Urobilinogen, Urine Normal Normal mg/dL Nitrite, Urine Negative Negative Esterase, Urine Negative Negative Comment, Urine Patient Active Problem List Diagnosis Code History [...] A1c goal of less than 7.0% (HCC) E11.9 Mixed dyslipidemia E78.2 Fatty liver K76.0 [...] 90 mL 3 Blood Glucose Monitoring Suppl (EnvironmentIQ SYSTEM) W/DEVICE KIT Use up to 3 times a day as directed--E11.9 1 Kit 0 CPAP every night at bedtime . Denosumab 60 MG/ML Subcutaneous Solution Prefilled Syringe (Prol[employer]el[employer]) Inject 60 mg under the skin once. --- started by [facility] provider 04/29/22 1 Each 0 diphenhydrAMINE (BENADRYL) 25 MG Capsule Use 1 or 2 tabs as needed at bedtime for worsening nasal allergy symptoms 50 Cap 1 Esomeprazole Magnesium 20 MG Oral Capsule Delayed Release Take 1 Capsule by mouth in the morning. 1hour before the first meal of the day. 90 Capsule 3 Fluticasone Propionate 50 MCG/ACT Nasal Suspension (Flonase) Administer 1 Lawrence into each nostril in the morning and 1 Lawrence before bedtime. 48 mL 3 Glucose Blood (CopyRightNow ULTRA BLUE) STRP Use up to 3 times a day as directed--E11.9 100 Strip 11 Ibuprofen 600 MG Oral Tablet (Motrin) Take 1 Tablet by mouth every 8 hours as needed (Pain). with food for 1 week then as needed--use for pain and swelling knee 30 Tab 1 Ipratropium [place] 0.03 % Nasal Solution (Atrovent) Administer 2 Sprays into nostril every 8 hoursas needed for Rhinitis. 90 mL 0 Ketotifen Fumarate 0.025 % Ophthalmic Solution (Zaditor) Instill 1 Drop into both eyes as needed (as needed for dry eyes). 5 mL 0 Lisinopril 2.5 MG Oral Tablet (Prinivil) Take 1 Tablet by mouth in the morning. 90 Tablet 3 Magnesium Oxide 400 (241.3 Mg) MG Oral Tablet Take 400 mg by mouth every other day. -st 06/13/2020-feb 19 1 Tab 0 MEDICAL INSTRUCTIONS Patient has [...] Chloride 5 MG Oral Tablet (Ditropan) Take 1 Tablet by mouth in the morning and 1 Tablet before bedtime. Inc 10/08/2022. 90 Tablet 3 Saline Nasal Lawrence 0.65 % Nasal Solution Administer 1 Lawrence into nostril as needed for Congestion. SUMAtriptan Succinate 100 MG Oral Tablet TAKE 1 TABLET ONCE FOR 1 DOSE AT START OF MIGRAINE, MAY REPEAT IN 2 HOURS MAX 2 TABLETS PER 24 HOURS (rare use)--has med at home, last RX 06/05 with 2 rf Vitamin D3 50 MCG (1999 UT) Oral [...] hemoglobin A1c goal of less than 7.0% ([facility]) 01/02/2016 Past Surgical History: Procedure Laterality Date BIMALLEOLAR ANKLE FX W/ FIXATION Left 06/06/2017 OPEN TREATMENT BIMALLEOLAR ANKLE FRACTURE performed by Glenys Rogel DPM at OR [facility] COLONOSCOPY, DIAGNOSTIC (RECTUM) 02/22/2013 COLONOSCOPY FLEXIBLE PROXIMAL DIAGNOSTIC performed by Aleks Jhaveri MD at OR [facility] COLONOSCOPY, DIAGNOSTIC (RECTUM) 04/30/2018 adenomatous & hyperplastic polyps, diverticulosis, repeat 3 yrs/COLONOSCOPY FLEXIBLE PROXIMAL DIAGNOSTIC performed by Aleks Jhaveri MD at ENDOSCOPY [facility] COLONOSCOPY, DIAGNOSTIC (RECTUM) 06/07/2021 diverticulosis, repeat 5 yrs / COLONOSCOPY FLEXIBLE PROXIMAL DIAGNOSTIC performed by Aleks Jhaveri MD at ENDOSCOPY [facility] MAMMOGRAM - BILATERAL 05/18/2004 birad code 2 [...] Other (Other) Mother scleroderma, at 65 Other (MS) Father 80 at 86 Stroke Father 80 Other (kidney stones; obesity) Brother Allergies Other nephew - cat allergy Social History Tobacco Use Smoking status: Former Packs/day: 1.00 Years: 20.00 Additional pack years: 0.00 Total pack years: 20.00 Types: Cigarettes Quit date: 03/17/1997 Years since quittin.1 Smokeless tobacco: Never Tobacco comments: no passive smoke Vaping Use Vaping Use: Never used Substance Use Topics Alcohol use: Yes Alcohol/week: 3.3 standard drinks of alcohol Types: 2 12 oz of beer, 2 5 oz of wine per week Comment: occ Drug use: No OBJECTIVE: BP 122/84 | Pulse 89 | Temp 36.5 C (97.7 F) | Ht 1.676 m (5' 6") | Wt 106.8 kg (235 lb 6.4 oz) | LMP 01/22/2004 | SpO2 95% | BMI 37.99 kg/m | BSA 2.23 m PHYSICAL EXAM: Rpt BP 120/70-LALC General: alert, healthy, no distress, well nourished and well developed Head: Normocephalic, atraumatic Eye Exam: PERRLA, EOMI, Conjunctiva are pink and non-injected, sclera clear Ears: External ears normal, Canal clear, Tm normal left, Rt exc cerumen Nose: DNS to Rt, mild dryness,no mucosal erythema, no mucosal edema, clear DC on left, +mild left paranasal tenderness Oropharynx: no exudate and no erythema, mm moist Neck: supple, no bruits, no JVD, thyroid [...] hemoglobin A1c goal of less than 7.0% ([facility]) (Primary) - Dulaglutide 0.75 MG/0.5ML Subcutaneous Solution Pen-injector (GoGoVan); Inject 0.75 mg under the skin once a week.--2023 - HEMOGLOBIN A1C, POINT OF CARE; Future; Expected date: 07/21/2023 - ALT; Future; Expected date: 10/21/2023 - HEMOGLOBIN A1C; Future; Expected date: 10/21/2023 - LDL CHOLESTEROL (DIRECT MEASURE); Future; Expected date: 10/21/2023 - BASIC METABOLIC PANEL; Future; Expected date: 10/21/2023 Mixed dyslipidemia - ALT; Future; Expected date: 10/21/2023 - LDL CHOLESTEROL (DIRECT MEASURE); Future; Expected date: 10/21/2023 At goal PAIGE on CPAP Gastroesophageal reflux disease without esophagitis ct current meds Mixed incontinence urge and stress Se ehpi Lumbar degenerative disc disease Traumatic compression fracture of L4 lumbar vertebra with routine healing, subsequent encounter Other closed fracture of fifth lumbar vertebra with routine healing, subsequent encounter Osteopenia of left forearm Screening for osteoporosis Ct fu rheum at [facility] Encounter for screening mammogram for breast cancer Utd Migraine without aura and without status migrainosus, not intractable Severe obesity (BMI 35.0-39.9) with comorbidity (HCC) - Dulaglutide 0.75 MG/0.5ML Subcutaneous Solution Pen-injector (Trulicity); Inject 0.75 mg under the skin once a week. Need for hepatitis B vaccination - HEP B VACCINE, 20+ YRS (3-DOSE); Standing Deviated nasal septum Nasal congestion Mixed rhinitis Allergic rhinitis due to dust mite --try increasing Flonase to 2 sprays at night, Atrovent was not effective, continue Astelin twice daily, nasal saline spray every 1-2 hours during the day as needed and definitely at bedtime, keep appointment with air conditioner installer helper later this month Follow Up: Return in about 3 months (around 07/21/2023), or if symptoms worsen or fail to improve, for Return with Physician. | For: Return with Physician | Check-out note: Nurse appt [facility] hep b 2 Gisela Hedrick MD 04/22/2023 documented in this encounter Nursing Notes * Rolly River LPN - 04/22/2023 9:25 AM EST Chief Complaint Patient presents with Physical-Exam The pt stated she is here for her annual physical and pelvic exam documented in this encounter Plan of Treatment Upcoming Encounters Date Type Department Care Team (Late st Contact Info) Description 05/01/2023 1:30 PM EST Office Visit Allergy/Immunology [facility] [place] [address] [facility] [place] [address] Ambrocio Alexis MD [address] [facility] [place] [address] 05/21/2023 10:00 AM EST Nurse Only Ancillary [facility] [place] [address] [facility] [place] [address] Nurse, Int Med [address] [facility] [place] [address] 07/22/2023 9:20 AM EDT [facility] [address] [facility] [place] [address] Gisela Hedrick MD [address] [facility] [place] [address] 03/15/2024 10:00 AM EST Office Visit [facility] Disorders [facility] [address] [place] [id number] Tash Jacobo, [address] [place] [address] Scheduled Orders Name Type Priority Associated Diagnoses Orde r Schedule HEMOGLOBIN A1C, POINT OF CARE Point of Care Testing - Unsolicited Results Routine Type 2 diabetes mellitus with hemoglobin A1c goal of less than 7.0% (HCC) Expected: 07/21/2023, Expires: 04/22/2024 ALT Lab Routine Type 2 diabetes mellitus with hemoglobin A1c goal of less than 7.0% (HCC) Mixed dyslipidemia Expected: 10/21/2023 (Approximate), Expires: 04/21/2024 HEMOGLOBIN A1C Lab Routine Type 2 diabetes mellitus with hemoglobin A1c goal of less than 7.0% (HCC) Expected: 10/21/2023 (Approximate), Expires: 04/21/2024 LDL CHOLESTEROL (DIRECT MEASURE) Lab Routine Type 2 diabetes mellitus with hemoglobin A1c goal of less than 7.0% (HCC) Mixed dyslipidemia Expected: 10/21/2023 (Approximate), Expires: 04/21/2024 BASIC METABOLIC PANEL Lab Routine Type 2 diabetes mellitus with hemoglobin A1c goal of less than 7.0% (HCC) Expected: 10/21/2023 (Approximate), Expires: 04/21/2024 Scheduled Procedures Name Priority Associated Diagnoses Date/Ti [...] this encounter Medical Devices Implanted Type Area Pharmacy Care Coordinator Device Identifier Shelf Expiration Date Model / Serial / Lot 3.5 Non Locking Screw 12mm Implanted:Qty: 1 on 06/06/2017 by Glenys Rogel DPM at OR [facility] Left: Ankle NIKOLAY [id number] / / documented as of this encounter Visit Diagnoses Diagnosis Need for hepatitis B vaccination- Primary Need for prophylactic vaccination and inoculation against viral hepatitis Type 2 diabetes mellitus with hemoglobin A1c goal of less than 7.0% (HCC) Mixed dyslipidemia Mixed hyperlipidemia PAIGE on CPAP Obstructive sleep apnea (adult) (pediatric) Gastroesophageal reflux disease without esophagitis Esophageal reflux Mixed incontinence urge and stress Mixed incontinence urge and stress (male)(female) Lumbar degenerative disc disease Degeneration of lumbar or lumbosacral intervertebral disc Traumatic compression fracture of L4 lumbar vertebra with routine healing, subsequent encounter Other closed fracture of fifth lumbar vertebra with routine healing, subsequent encounter Osteopenia of left forearm Screening for osteoporosis Special screening for osteoporosis Encounter for screening mammogram for breast cancer Migraine without aura and without status migrainosus, not intractable Migraine without aura, without mention of intractable migraine without mention of status migrainosus Severe obesity (BMI 35.0-39.9) with comorbidity (HCC) Morbid obesity Deviated nasal septum Nasal congestion Other diseases of nasal cavity and sinuses Mixed rhinitis Chronic rhinitis Allergic rhinitis due to dust mite documented in this encounter Care Teams Insulation Cutter Relationship Specialty Start Date End Date Gisela Hedrick MD [address] [place] [address] PCP - General Internal Medicine 03/04/22 documented as of this encounter
--- OUTSIDE RECORDS SUMMARY | 2023-07-23 20:10 | External Medical Summary | Summary of Care ---
Author Name Unknown Organization [facility] Address [address] [place] [address] Phone [phone] Care Team Providers Care Conservation Enforcement Officer Name Role Phone Gisela Hedrick MD Primary Care Provider [phone] Reason for Visit * Reason Comments Outpatient Testing Encounter Details Date Type Department Care Team (Late st Contact Info) Description 04/09/2023 7:10 AM EST Laboratory [facility] [address] [place] [id number] [facility] [address] [facility] [place] [address] Type 2 diabetes mellitus with hemoglobin A1c goal of less than 7.0% (HCC); Gastroesophageal reflux disease without esophagitis; Encounter for long-term (current) use of medications; Low vitamin B12 level; Mixed dyslipidemia; Mixed incontinence urge and stress Allergies Active Allergy Reactions Criticality Noted Date Comments Mites 06/21/2016 documented as of this encounter (statuses as of 04/09/2023) Medications Medication Sig Dispensed Refills Start Date [...] 11 01/03/2016 Active Blood Glucose Monitoring Suppl (SyncronexTOUCH ULTRA SYSTEM) W/DEVICE KITIndications:Type 2 diabetes mellitus with hemoglobin A1c goal of less than 7.0% (HCC) Use up to 3 times a day as directed--E11.9 1 Kit 0 01/03/2016 Active SyncronexTOUCH ULTRASOFT LANCETS MISCIndications:Type 2 diabetes mellitus with hemoglobin A1c goal of less than 7.0% (HCC) Use up to 3 times a day as directed--E11.9 1 Box Dosing Unit 11 01/03/2016 Active Saline Nasal [place] 0.65 % Nasal Solution Administer 1 [place] into nostril as needed for Congestion. 0 Active diphenhydrAMINE (BENADRYL) 25 MG Capsule Use 1 or 2 tabs as needed at bedtime for worsening nasal allergy symptoms 50 Cap 1 05/17/2016 Active MEDICAL INSTRUCTIONS Patient has sleep apnea and is on CPAP machine at night. 1 Each 1 10/04/2016 Active Riboflavin 400 MG Oral CapsuleIndications:M igraine without aura and without status migrainosus, not intractable Take 1 Capsule by mouth every other day. -OTC-st 02/24/2020-feb 19 1 Cap 0 09/11/2020 Active Magnesium Oxide 400 (241.3 Mg) MG Oral TabletIndications:Mi graine without aura and without status migrainosus, not intractable Take 400 mg by mouth every other day. -st 06/13/2020-feb 19 1 Tab 0 09/11/2020 Active Ibuprofen 600 MG Oral Tablet (Motrin)Indications: Chronic pain of right knee,Arthritis of right knee,Knee effusion, right,Patellar tracking disorder of right knee Take 1 Tablet by mouth 2 times a day with morning and evening meals. with food for 1 week then as [...] 50 MCG/ACT Nasal Suspension (Flonase) Administer 1 [place] into each nostril in the morning and 1 [place] before bedtime. 48 mL 3 05/22/2022 Active [...] day. 90 Capsule 3 02/27/2023 Active Ipratropium [place] 0.03 % Nasal Solution (Atrovent)Indication s:PAIGE on [...] before bedtime. 360 Tablet 3 02/27/2023 Active oxyBUTYnin Chloride 5 MG Oral Tablet (Ditropan)Indication s:Mixed incontinence urge and stress Take 1 Tablet by mouth in the morning and 1 Tablet before bedtime. Inc 10/08/2022. 90 Tablet 3 02/27/2023 Active documented as of this encounter (statuses as of 04/09/2023) Active Problems Problem Noted Date Diagnosed Date [...] as of this encounter (statuses as of 04/09/2023) Resolved Problems Problem Noted Date Diagnosed Date [...] as of this encounter (statuses as of 04/09/2023) Immunizations Name Administration Dates Next Due COVID-19 mRNA, LNP-s, No Pre serve, 2-Dose Series (Moderna) 06/19/2020,05/22/2020 COVID-19, MRNA-LNP, 23-24, P F, 30 MCG/0.3 mL, 12 YRS AND ABOVE, IM (PFIZER-Comirnaty) 12/20/2022 COVID-19, mRNA, LNP-s, PF, B ooster, 100mcg/0.5mg (Moderna) 01/30/2021 Covid-19, Mrna, Lnp-s, Pf, B ivalent, 30 Mcg, IM, 12 yrs and above (Pfizer) 01/31/2022 Pneumococcal Conjugate Vacc, 13 Valent (Prevnar) 04/05/2016 [...] 20 Q uit: 03/17/1997 Smokeless Tobacco: Never Comments:no passive smoke [...] AM EST Office Visit [facility] [address] [facility] [place] [address] Gisela Hedrick MD [address] [facility] [place] [address] 05/01/2023 1:30 PM EST Office Visit [facility] [address] [facility] [place] [address] Ambrocio Alexis MD [address] [facility] [place] [address] 03/15/2024 10:00 AM EST Office Visit Sleep Disorders Ctr [facility] [address] [place] [phone] Tash Jacobo DO [address] [place] [address] Pending Results Name Type Priority Associated Diagnoses Date /Time VITAMIN B12 Lab Routine Type 2 diabetes mellitus with hemoglobin A1c goal of less than 7.0% ([facility]) Gastroesophageal reflux disease without esophagitis Encounter for long-term (current) use of medications Low vitamin B12 level 04/09/2023 7:10 AM EST ALT Lab Routine Type 2 diabetes mellitus with hemoglobin A1c goal of less than 7.0% ([facility]) Mixed dyslipidemia 04/09/2023 7:10 AM EST BASIC METABOLIC PANEL Lab Routine Type 2 diabetes mellitus with hemoglobin A1c goal of less than 7.0% ([facility]) 04/09/2023 7:10 AM EST LIPID PANEL WITH DIRECT LDL IF TG IS HIGH Lab Routine Type 2 diabetes mellitus with hemoglobin A1c goal of less than 7.0% ([facility]) Mixed dyslipidemia 04/09/2023 7:10 AM EST HEMOGLOBIN A1C Lab Routine Type 2 diabetes mellitus with hemoglobin A1c goal of less than 7.0% ([facility]) 04/09/2023 7:10 AM EST LDL CHOLESTEROL (DIRECT MEASURE) Lab Routine Type 2 diabetes mellitus with hemoglobin A1c goal of less than 7.0% ([facility]) 04/09/2023 7:10 AM EST CBC WITH WBC DIFFERENTIAL Lab Routine Type 2 diabetes mellitus with hemoglobin A1c goal of less than 7.0% (HCC) Gastroesophageal reflux disease without esophagitis 04/09/2023 7:10 AM EST CBC Lab Routine Type 2 diabetes mellitus with hemoglobin A1c goal of less than 7.0% ([facility]) Gastroesophageal reflux disease without esophagitis 04/09/2023 7:10 AM EST DIFFERENTIAL, AUTOMATED Lab Routine Type 2 diabetes mellitus with hemoglobin A1c goal of less than 7.0% ([facility]) Gastroesophageal reflux disease without esophagitis 04/09/2023 7:10 AM EST ALBUMIN / CREATININE RATIO, URINE Lab Routine Type 2 diabetes mellitus with hemoglobin A1c goal of less than 7.0% (HCC) 04/09/2023 7:13 AM EST URINALYSIS, REFLEX TO MICROSCOPIC Lab Routine Mixed incontinence urge and stress 04/09/2023 7:13 AM EST Scheduled Procedures Name Priority Associated Diagnoses Date/Ti me COLONOSCOPY FLEXIBLE PROXIMA L DIAGNOSTIC Recall History of colonic polyps Health Maintenance Due Date Last Done Comments Hepatitis B (1 of 3 - Risk 3-dose series) 2014 Albumin/Creatinine Ratio 03/29/2023 023, 09/10/2021, 09/04/2020, Additional history exists HbA1c 04/02/2023 09/30/2022, 03/17, 09/10/2021, Additional history exists B-12 10/01/2023 09/30/2022, 08/16, 09/04/2020, Additional history exists GFR 10/01/2023 09/30/2022, 03/17, 09/10/2021, Additional history exists Depression Screening 10/09/2023 10/08/2022, 12/14/19 15 Diabetic Foot Exam 10/09/2023 10/08/2022, 0 10/02/2021, 09/11/2020, Additional history exists Diabetic Eye Exam 01/16/2024 01/15/2023, , 01/24/2021, Additional history exists Mammogram 03/28/2024 03/28/2023, 0 06/2022, 03/20/2022, Additional history exists COLONOSCOPY-EVERY 5 YRS AGES 18-100 06/07/2026 06/07/2021, 06/07/2021, 04/30/2018, Additional history exists DXA Scan 03/20/2027 03/20/2020, 03/20/2020 Lipid Panel 10/01/2027 09/30/2022, 03/17, 09/10/2021, Additional history exists DTaP,Tdap,and Td Vaccines (3 [...] this encounter Medical Devices Implanted Type Area Clark Driver Device Identifier Shelf Expiration Date Model / Serial / Lot 3.5 Non Locking Screw 12mm Implanted:Qty: 1 on 06/06/2017 by Glenys Rogel DPM at OR [facility] Left: Ankle NIKOLAY [id number] / / documented as of this encounter Visit Diagnoses Diagnosis Type 2 diabetes mellitus with hemoglobin A1c goal of less than 7.0% (HCC) Gastroesophageal reflux disease without esophagitis Esophageal reflux Encounter for long-term (current) use of medications Encounter for long-term (current) use of other medications Low vitamin B12 level Other B-complex deficiencies Mixed dyslipidemia Mixed hyperlipidemia Mixed incontinence urge and stress Mixed incontinence urge and stress (male)(female) documented in this encounter Care Teams Conservation Enforcement Officer Relationship Specialty Start Date End Date Gisela Hedrick MD [address] [place] [address], [place] [address] PCP - General Internal Medicine 03/04/22 documented as of this encounter
--- OUTSIDE RECORDS SUMMARY | 2023-07-23 20:10 | External Medical Summary ---
Author Name Unknown Address Unknown Organization [id number]:[facility] [place] [address] Laboratory Report Ordering Provider Test Date Status TABITHA GODOY 04/09/2023 07:10:34 Final Observation Date Value Abnormality Reference (Units ) Status WBC, Total 04/09/2023 07:10:34 6.00 4.00-10.8 0 (K/uL) Final RBC 04/09/2023 07:10:34 4.57 3.85-5.15 (M/uL) Final Hemoglobin 04/09/2023 07:10:34 14.2 12.0-15.3 (g/dL) Final HCT 04/09/2023 07:10:34 44.6 36.0-45.2 (%) Final MCV 04/09/2023 07:10:34 97.6 81.5-97.5 (fL) Final MCH 04/09/2023 07:10:34 31.1 27.0-34.0 (pg) Final MCHC 04/09/2023 07:10:34 31.8 32.0-36.0 (g/dL) Final RDW 04/09/2023 07:10:34 14.1 11.5-15.5 (%) Final Platelets 04/09/2023 07:10:34 254 140-400 (K /uL) Final MPV 04/09/2023 07:10:34 11.7 6.6-11.1 ( fL) Final Performing Location [facility] [place] [address]
--- OUTSIDE RECORDS SUMMARY | 2023-07-23 20:10 | External Medical Summary ---
Author Name Unknown Address Unknown Organization [id number]:[facility] - [address] [place] [address] Laboratory Report Ordering Provider Test Date Status TABITHA GODOY 04/09/2023 07:10:34 Final Observation Date Value Abnormality Reference (Units ) Status HbA1C 04/09/2023 07:10:34 7.4 Above high normal 4. 0-5.6 (%) Final The use of HbA1c to monitor glycemic status is based on normal hemoglobin and HbA composition. This test should not be used in patients with abnormal hemoglobin that affects the half life of the red blood cell or the in vivo glycation rates. Glucose, estimated average 04/09/2023 07:10:34 166 Above high normal <126 (mg/dL) Hernando enrique Performing Location [facility] - [address] [place] [address]
--- OUTSIDE RECORDS SUMMARY | 2023-07-23 20:10 | External Medical Summary | Summary of Care ---
Author Name Unknown Organization [facility] Address [address] [place] [address] Phone [phone] Care Team Providers Care Production Stage Manager Name Role Phone Gisela Hedrick MD Primary Care Provider [phone] Encounter Details Date Type Department Care Team (Late st Contact Info) Description 03/31/2023 Orders Only [facility] [address] [place] [address] Gisela Hedrick MD [address] [place] [address] Allergies Active Allergy Reactions Criticality Noted Date Comments Mites 06/21/2016 documented as of this encounter (statuses as of 03/31/2023) Medications Medication Sig Dispensed Refills Start Date End Date Status MULTI-DAY VITAMINS PO TABS once a day 0 12/20/2005 Active aspirin enteric coated 81 MG TBECIndications:Type 2 diabetes mellitus with hemoglobin A1c goal of less than 7.0% ([facility]) Take 1 Tab by mouth daily. [...] as directed--E11.9 1 Kit 0 01/03/2016 Active EmailageTOUCH ULTRASOFT LANCETS MISCIndications:Type 2 diabetes mellitus with hemoglobin A1c goal of less than 7.0% (HCC) Use up to 3 times a day as directed--E11.9 1 Box Dosing Unit 11 01/03/2016 Active Saline Nasal [place] 0.65 % Nasal Solution Administer 1 Williams into nostril as needed for Congestion. 0 [...] 50 MCG/ACT Nasal Suspension (Flonase) Administer 1 Williams into each nostril in the morning and 1 Williams before bedtime. 48 mL 3 05/22/2022 Active [...] day. 90 Capsule 3 02/27/2023 Active Ipratropium [place] 0.03 % Nasal Solution (Atrovent)Indication s:PAIGE on [...] as of this encounter (statuses as of 03/31/2023) Active Problems Problem Noted Date Diagnosed Date [...] mm adenoma of sigmoid colon, repeat 5 years>>2/19-2 P TC, 1 SC, IH, sig tics,HPP+TAP rpt 3 yrs documented as of this encounter (statuses as of 03/31/2023) Resolved Problems Problem Noted Date Diagnosed Date [...] as of this encounter (statuses as of 03/31/2023) Immunizations Name Administration Dates Next Due COVID-19 mRNA, LNP-s, No Pre serve, 2-Dose Series (Moderna) 06/19/2020,05/22/2020 COVID-19, MRNA-LNP, 23-24, P F, 30 MCG/0.3 mL, 12 YRS AND ABOVE, IM (Metafused-Comirnat) 12/20/2022 COVID-19, mRNA, LNP-s, PF, B ooster, [...] Care Team (Late st Contact Info) Description 04/10/2023 9:20 AM EST Office Visit General Internal Medicine [facility] [place] [address] [place], [place] [address] Gisela Hedrick MD [address] [place] [id number] 05/01/2023 1:30 PM EST Office Visit Allergy/Immunology [facility] [place] [address] [facility] [address] Ambrocio Alexis MD [address] [facility] [place] [address] 03/15/2024 10:00 AM EST Office Visit Sleep Disorders Ctr [facility], [place] [address] [place] [phone] Tash Jacobo DO [address] [place] [address] Scheduled Procedures Name Priority Associated Diagnoses Date/Ti me COLONOSCOPY FLEXIBLE PROXIMA L DIAGNOSTIC Recall History of colonic polyps Health Maintenance Due Date Last Done Comments Hepatitis B (1 of 3 - Risk 3-dose series) 2014 Mammogram 03/20/2023 03/28/2023, 06/2022, 03/20/2022, Additional history exists Albumin/Creatinine Ratio 03/29/2023 023, 09/10/2021, 09/04/2020, Additional history exists HbA1c 04/02/2023 09/30/2022, 03/17, 09/10/2021, Additional history exists B-12 10/01/2023 09/30/2022, 08/16, 09/04/2020, Additional history exists GFR 10/01/2023 09/30/2022, 03/17, 09/10/2021, Additional history exists Depression Screening 10/09/2023 10/08/2022, 12/14/19 15 Diabetic Foot Exam 10/09/2023 10/08/2022, 0 10/02/2021, 09/11/2020, Additional history exists Diabetic Eye Exam 01/16/2024 01/15/2023, , 01/24/2021, Additional history exists COLONOSCOPY-EVERY 5 YRS AGES [...] this encounter Medical Devices Implanted Type Area Territory Sales Executive Device Identifier Shelf Expiration Date Model / Serial / Lot 3.5 Non Locking Screw 12mm Implanted:Qty: 1 on 06/06/2017 by Glenys Rogel DPM at OR [facility] Left: Ankle NIKOLAY [id number] / / documented as of this encounter Procedures Procedure Name Priority Date/Time Associated Diagnosis Comments MAMMOGRAM SCREENING BILATERAL Routine 03/28/2023 documented in this encounter Results * MAMMOGRAM SCREENING BILATERAL (03/28/2023) Anatomical Region Laterality Modality Breast Bilateral Other 03/28/2023 Gisela Hedrick MD RAD MAMMOGRAPHY documented in this encounter Care Teams Production Stage Manager Relationship Specialty Start Date End Date Gisela Hedrick MD [address] [facility] [place] [place] [address] PCP - General Internal Medicine 03/04/22 documented as of this encounter
--- OUTSIDE RECORDS SUMMARY | 2023-07-23 20:10 | External Medical Summary ---
Author Name Unknown Address Unknown Organization [id number]:[facility] [place] [address] Laboratory Report Ordering Provider Test Date Status TABITHA GODOY 04/09/2023 07:10:34 Final Observation Date Value Abnormality Reference (Units ) Status ALT (Alanine aminotransferase) 04/09/2023 07:10:34 27 10-35 (U/L) Final Performing Location [facility] [place] [address]
--- OUTSIDE RECORDS SUMMARY | 2023-07-23 20:10 | External Medical Summary ---
Author Name Unknown Address Unknown Organization [id number]:[facility] [place] [address] [facility] [place] [address] Laboratory Report Ordering Provider Test Date Status TABITHA GODOY 04/09/2023 07:10:34 Final Observation Date Value Abnormality Reference (Units ) Status Triglyceride 04/09/2023 07:10:34 139 <=174 ( mg/dL) Final Triglyceride Reference Range s (mg/dL):
<150 Acceptable
150-174 Borderline high
175-499 High
>=500 Very high Cholesterol 04/09/2023 07:10:34 138 <200 (mg /dL) Final Total Cholesterol Reference Ranges (mg/dL):
<200 Desirable
200-239 Borderline high
>=240 High HDL 04/09/2023 07:10:34 44 Below low normal >49 (mg/dL) Final HDL Cholesterol Reference Ra nges (mg/dL):
>=60 High (Desirable)
<50 Low (Undesirable) For Females
<40 Low (Undesirable) For Males NON-HDL CHOLESTEROL 04/09/2023 07:10:34 94 <=159 (mg/dL) Final Non-HDL Cholesterol Referenc e Range (mg/dL):
<100 Target level for high risk ASCVD patient
<130 Optimal for general population
130-159 Near optimal for general population
160-189 Borderline High
190-219 High
>=220 Very High LDL, (calculated) 04/09/2023 07:10:34 66 <= 129 (mg/dL) Final LDL Cholesterol Reference Ra nges (mg/dL):
<70 Target level for high risk ASCVD patient
<100 Optimal for general population
100-129 Near optimal for general population
130-159 Borderline high
160-189 High
>=190 Very high Performing Location [facility] - [address] [facility] [address]
--- NOTE | 2023-07-23 20:46 | Orthopedic Progress Note ---
Date of Service July 23, 2023 Assessment & Plan (1) Fracture of ankle, trimalleolar, right, open: Plan: Stable postop. IV antibiotics, nonweightbearing, Eliquis in the morning. 6 weeks nonweightbearing. Pain control discussed. Admission and Anticipated Discharge Date Admission Date: July 23, 2023 Subjective No problems noted. Results of surgery discussed. Spoke with . Physical Exam Physical Exam: DP trace. Capillary refill less than 2 seconds she can flex and extend the toes. Sensation intact throughout the toes. Results & Data Vital Signs (Past 12 Hours) Vital Signs Temp Pulse Pulse Pulse Resp BP BP 07/23/23 20:15 36.5 C 83 18 132/80 07/23/23 19:46 36.9 C 79 16 139/83 07/23/23 19:25 36.6 C 78 16 133/77 07/23/23 19:10 76 20 130/79 07/23/23 19:00 78 18 135/77 07/23/23 18:50 82 24 139/82 07/23/23 18:40 82 23 142/79 H 07/23/23 18:30 89 24 139/87 07/23/23 18:22 37.0 C 85 21 118/76 07/23/23 14:06 36.6 C 63 18 156/107 H 07/23/23 13:39 67 18 144/86 H 07/23/23 10:39 68 07/23/23 10:33 18 07/23/23 10:18 36.5 C 71 18 170/108 H Pulse Ox O2 Del Method O2 Flow Rate 07/23/23 20:15 92 Nasal Cannula 2 07/23/23 19:46 95 Nasal Cannula 2 07/23/23 19:25 93 Oxymask 2 07/23/23 19:10 92 Oxymask 2 07/23/23 19:00 92 Oxymask 2 07/23/23 18:50 91 Oxymask 4 07/23/23 18:40 93 Oxymask 4 07/23/23 18:30 95 Oxymask 8 07/23/23 18:22 94 Oxymask 8 07/23/23 14:06 94 Room Air 07/23/23 13:39 96 07/23/23 10:39 07/23/23 10:33 07/23/23 10:18 95 Room Air
[2023-07-23] MEDS: INSULIN ASPART PER UNIT CHARGE SC SCH (21:00)
[2023-07-23] MEDS: ceFAZolin 2000MG 2,000 MG/15 ML SYR IV SCH (21:04)
[2023-07-23] MEDS: BACITRACIN OINT 14 GM TUBE ONE (21:04)
[2023-07-23] MEDS: SENNA 8.6 MG TAB PO SCH (21:06)
[2023-07-23] MEDS: DOCUSATE SODIUM 100 MG CAP PO SCH (21:06)
[2023-07-23] MEDS: ACETAMINOPHEN 500 MG TAB PO SCH (21:06)
[2023-07-24 08:16] LABS: BUN Creatinine Ratio 18.1 (10-20); Creatinine Clr Calc Pharmacy 89.1 ml/min; Est GFR (African American) 99.7 ml/min; Est GFR (Non-African American) 86.1 ml/min; Potassium 3.8 mmol/L (3.5-5.1)
[2023-07-24 08:17] LABS: Hemoglobin 12.2 g/dl (12.0-16.0); Mean Corpuscular Hemoglobin 30.4 pg (25.0-34.0); Mean Corpuscular Volume 92.3 fL (80.0-100.0); Mean Platelet Volume 10.8 fL (9.4-12.4); Platelet Count 240 K/uL (130-400); RDW Coefficient of Variation 14.1 % (11.5-14.5); RDW Standard Deviation 47.9 fL (36.4-46.3); Red Blood Count 4.01 M/uL (4.20-5.40); White Blood Count 9.56 K/ul (4.8-10.8)
[2023-07-24 08:34] LABS: Estimated Average Glucose 131 mg/dl; Hemoglobin A1C 6.2 % (4.5-5.6)
[2023-07-24] MEDS: ASCORBIC ACID 500 MG TAB PO SCH (08:38)
[2023-07-24] MEDS: APIXABAN 2.5 MG TAB PO SCH (08:39)
[2023-07-24] MEDS: MULTIVITAMIN TAB PO SCH (08:39)
[2023-07-24] MEDS: FERROUS GLUCONATE 324 MG TAB PO SCH (08:39)
--- NOTE | 2023-07-24 09:50 | Orthopedic Progress Note ---
Date of Service July 24, 2023 Assessment & Plan (1) Status post ORIF of fracture of ankle: Plan: The patient was educated regarding today's findings. Unfortunately her med rec was not done in the ED last evening. It was completed this morning by nursing. Occasions will be added to her daily regimen. Continue with ice and elevation. Continue with nonweightbearing status. We discussed discharge. She will be here until Friday morning and discharged at that time, in order to receive a full 48 hours of antibiotics. will obtain a knee scooter to before her charge. Dressing will likely be changed tomorrow afternoon by Dr. Waldrop. Admission and Anticipated Discharge Date Admission Date: July 23, 2023 Subjective This 67-year-old female is seen today in her room. Her is at bedside. The patient denies any chest pain, shortness of breath, nausea, or vomiting. She states she did not sleep well last evening. She only slept about an hour in her estimation. She is wondering if she can have something for sleep. She is also wondering when she will be discharged. Denies any numbness or tingling. She states her pain is reasonably well-controlled. No other complaints. Review of Systems Review of Systems: Unchanged from yesterday. Physical Exam Physical Exam: General: Well-developed, well-nourished, middle-aged female, in no acute distress. Laying in bed. Alert and oriented. Skin: Warm and dry with good turgor. She has a postsurgical dressing in place on the right lower leg. No edema is noted in her toes. Musculoskeletal: The patient has intact motor function of her toes. Ankle motion cannot be assessed. She has intact motion at her knee without difficulty. Neurologic: Gross sensation is intact across each of the digits of the right foot by soft touch. Capillary refill is equal for each of the toes. Results & Data Vital Signs (Past 12 Hours) Vital Signs Temp Pulse Resp BP Pulse Ox O2 Del Method O2 Flow Rate 07/24/23 07:19 36 C L 76 16 133/69 93 Room Air 07/24/23 03:07 36.8 C 81 16 126/75 93 Nasal Cannula 1 07/23/23 22:55 36.7 C 82 16 136/80 92 Nasal Cannula 2 07/23/23 21:45 36.8 C 84 18 124/79 92 Nasal Cannula 2 Laboratory Results CBC obtained today shows a white count of 9.56. H&H of 12.2 and 37.0. Platelets 240,000. Sodium 140, potassium 3.8, chloride 106. Anion gap of 9 with BUN of 13 and creatinine 0.72. Glucose this morning is 108. Hemoglobin A1c is 6.2.
[2023-07-24] MEDS ORDERED: Nursing to Pharmacy Communication SCH (11:30)
[2023-07-24] MEDS: FLUTICASONE PROPIONATE NA SPR 16 GM BTL NAE SCH (11:46)
[2023-07-24] MEDS: AZELASTINE HCL 0.1% NASAL 200 SPRAYS/27,400 MCG BTL NAE SCH (11:46)
[2023-07-24] MEDS: PANTOprazole 40 MG TAB PO SCH (11:46)
[2023-07-24] MEDS: oxyBUTYnin chloride 5 MG TAB PO SCH (11:46)
[2023-07-24] MEDS ORDERED: [UNRECOGNIZED DRUG - REMARK] ONE (14:34)
--- NOTE | 2023-07-24 15:30 | Pharmacy Report ---
Pharmacy Glycemic Short Note 2 - Date of Service July 24, 2023 - Glycemic Short BSG Results (Last 24 hours): 07/23/23 07/23/23 07/23/23 18:31 20:14 22:54 Glucose POC Glucose 171 H 139 H 124 H 07/24/23 07/24/23 07/24/23 07:29 08:02 11:58 Glucose 108 H POC Glucose 99 105 H OUTPATIENT ANTIDIABETIC REGIMEN: * Dulaglutide 0.75 mg SC weekly * A1c = 6.2% ASSESSMENT: * Prisca is POD # 1 status post ORIF of fracture of ankle * Despite administration of dexamethasone IV in the OR the patient demonstrated good glycemic control with no insulin. * Fasting BSG of 99 mg/dL. Will hold off on basal insulin for the time being. * Continue Novolog - conservative parameters utilized PLAN FOR INPATIENT GLYCEMIC CONTROL: * Basal insulin * none * Bolus insulin * NovoLog per scale ACHS or Q6hrs while NPO * Goal Range: Low 110 mg/dL - High 140 mg/dL * Correction Factor: 25 mg/dL/unit * Nutritional / Prandial insulin per carb ratio of 1 unit per 10 grams CHO consumed
[2023-07-24] MEDS: IPRATROPIUM BROMIDE NASAL SPRAY 0.06% 15ML NAE SCH (20:29)
[2023-07-25] MEDS: diphenhydrAMINE 50 MG/ML VIAL IV PRN (01:13)
--- NOTE | 2023-07-25 05:51 | Electrocardiogram Report ---
Test Reason : Blood Pressure : / mmHG Vent. Rate : 071 BPM Atrial Rate : 071 BPM P-R Int : 194 ms QRS Dur : 070 ms QT Int : 404 ms P-R-T Axes : 045 -07 -05 degrees QTc Int : 439 ms Normal sinus rhythm Normal ECG No previous ECGs available Confirmed by Scott Hernández ([id number]) on 07/25/2023 5:51:04 AM Referred By: REFERRED SELF Confirmed By:Scott Hernández
[2023-07-25 07:54] VITALS: BP 142/87; PULSE 67; RESP 18; TEMP 97.5; O2SAT 94
--- NOTE | 2023-07-25 14:38 | Pharmacy Report ---
Pharmacy Glycemic Short Note 2 - Date of Service July 25, 2023 - Glycemic Short BSG Results (Last 24 hours): 07/24/23 07/24/23 07/25/23 16:30 20:21 07:50 POC Glucose 117 H 135 H 111 H 07/25/23 11:54 POC Glucose 82 OUTPATIENT ANTIDIABETIC REGIMEN: * Dulaglutide 0.75 mg SC weekly * A1c = 6.2% ASSESSMENT: 07/24 * Prisca received no insulin yesterday * Fasting BSG within goal range, continue with no basal insulin * Ate breakfast this AM and was covered, BSG fell below goal range at lunch, loosen Novolog parameters. 07/23: * Prisca is POD # 1 status post ORIF of fracture of ankle * Despite administration of dexamethasone IV in the OR the patient demonstrated good glycemic control with no insulin. * Fasting BSG of 99 mg/dL. Will hold off on basal insulin for the time being. * Continue Novolog - conservative parameters utilized PLAN FOR INPATIENT GLYCEMIC CONTROL: * Basal insulin * none * Bolus insulin * NovoLog per scale ACHS or Q6hrs while NPO * Goal Range: Low 110 mg/dL - High 140 mg/dL * Correction Factor: 35 mg/dL/unit * Nutritional / Prandial insulin per carb ratio of 1 unit per 12 grams CHO consumed
--- NOTE | 2023-07-25 15:28 | Orthopedic Progress Note ---
Date of Service July 25, 2023 Assessment & Plan (1) Status post ORIF of fracture of ankle: Plan: Doing well. Her 48 hours of IV antibiotics have been completed. She can be discharged this evening if she has transportation. She has follow-up next week in the office. She will be discharged on the Eliquis pain medication and her regular meds. Elevate ice. No weightbearing. If there is any problems with pain swelling fevers or any other problems or questions call my office or go to the emergency room. Do not bear any weight on the right leg. Admission and Anticipated Discharge Date Admission Date: July 23, 2023 Subjective No problems reported. Pain is well-controlled. She is functioning well with physical therapy. Physical Exam Physical Exam: Dressing changed. Lateral incision benign. Medial incision healing well without any necrosis. The puncture wounds from the open fracture are benign in appearance. Swelling is mild to moderate with no hematoma formation. She has 5- out of 5 ankle and toe plantarflexion dorsiflexion inversion and eversion strength with intact sensation throughout the foot. Her DP pulses not palpable however she has capillary refill less than 2 seconds in her PT pulses 2+. A new dressing is applied Xeroform 4 x 4's ABD soft wrap and a posterior splint with the ankle in neutral. Results & Data Vital Signs (Past 12 Hours) Vital Signs Temp Pulse Resp BP Pulse Ox O2 Del Method 07/25/23 07:52 36.4 C L 67 18 142/87 H 94 Room Air
--- NOTE | 2023-07-25 16:50 | Discharge Summary ---
Date of Service July 25, 2023 Discharge Data Procedures Performed Operation Date: 07/23/23 13:10 Actual Procedures s Right Incision and Drainage(Right) - Maxi Waldrop MD p Open Reduction Internal Fixation Ankle(Right) - Maxi Waldrop MD Hospital Course (1) Status post ORIF of fracture of ankle: Patient was admitted to [facility] after undergoing an urgent irrigation and debridement, open reduction term fixation of a right open bimalleolar ankle fracture with syndesmotic disruption. Surgery was performed with Dr. Waldrop. She presented to the emergency room after sustaining a fall on July 23, 2023. Upon exam in the emergency room she was found to have a right open ankle fracture/subluxation. X-rays confirmed a bimalleolar ankle fracture. Due to the open fracture she was taken to the operating room urgently. Her surgery was performed with general anesthesia. She tolerated the procedure well without any intraoperative or postoperative complications. Postoperatively she was instructed to be nonweightbearing on her right lower extremity. Ancef was continued for 48 hours after her procedure. She was placed on Eliquis 2.5 mg p.o. twice daily for DVT prophylaxis. DAVID stockings and AV impulse boots on the left leg were also utilized during her inpatient stay. She was given a regular diet. She would like out of bed, nonweightbearing right lower extremity. She was placed in a posterior splint and encouraged ice and elevate the right lower extremity at all times. She ambulated with the assistance of a walker. She was seen and evaluated by physical therapy and Occupational Therapy while in the hospital. She did well out of bed and was deemed safe for discharge to home. On postoperative day 2 her dressings were changed on the right lower extremity and revealed no active bleeding, no skin necrosis and well-approximated skin edges with intact cherise. Mild edema. A new splint and dressings were applied to the right ankle. Follow-up appointments have been made. Discharge instructions were reviewed. She was discharged to her home in stable condition on July 25, 2023.
== END 2023-07-25 17:16 | disposition home or self-care (01) | DRG 494 ==
LOC: ED 10:24 → OR 13:49 → 3N 18:33
DX: E78.00 Pure hypercholesterolemia, unspecified; E11.9 Type 2 diabetes mellitus without complications; Z79.85 Long-term (current) use of injectable non-insulin antidiabetic drugs; I10 Essential (primary) hypertension; S93.439A Sprain of tibiofibular ligament of unspecified ankle, initial encounter; S82.841B Displaced bimalleolar fracture of right lower leg, initial encounter for open fracture type I or II; Z79.84 Long term (current) use of oral hypoglycemic drugs; W10.9XXA Fall (on) (from) unspecified stairs and steps, initial encounter